=== PATIENT | male | born 1980 | race Caucasian/White ===

== ENCOUNTER 2017-03-28 14:13 | Inpatient (IN) | payer OTHER ==
[2017-03-28 17:37] VITALS: BMI 23.6
--- NOTE | 2017-03-28 18:39 | HP ---
CIWA Score - CIWA Score Nausea/Vomitin-Mild Nausea/No Vomiting Muscle Tremors: 1-None Visible, but [place] Anxiety: 2 Agitation: 1-Slight > Activity Paroxysmal Sweats: No Perspiration Orientation: 1-Uncertain about Date Tacttile Disturbances: 0-None Auditory Disturbances: 2-Mild Harshness/Frighten Visual Disturbances: 2-Mild Sensitivity Headache: 3-Moderate CIWA-Ar Total Score: 13 Admission ROS S - HPI Chief Complaint: WITHDRAWAL SYMPTOMS Allergies/Adverse Reactions: Allergies Allergy/AdvReac Type Severity Reaction Status Date / Time No Known Allergies Allergy Verified 03/28/17 17:47 History of Present Illness: 36 Y.O. MAN WITH A HISTORY OF BENZODIAZEPINES AND OPIOID DEPENDENCE IS HERE SEEKING DETOX. HE STATES HE IS ENROLLED AT [facility] MMTP AND LDM ON 03/28/17 AT 140MG OF METHADONE. DOES NOT HAVE A SIGNIFICANT PERIOD CLEAN. Exam Limitations: No Limitations - Ebola screening Have you traveled outside of the country in the last 21 days: No Have you had contact with anyone from an Ebola affected area: No Have you been sick,other than usual withdrawal symptoms: No Do you have a fever: No - Review of Systems Constitutional: No Symptoms Reported EENT: reports: No Symptoms Reported Respiratory: reports: Shortness of Breath, Wheezing Cardiac: reports: No Symptoms Reported GI: reports: No Symptoms Reported : reports: No Symptoms Reported Musculoskeletal: reports: No Symptoms Reported Integumentary: reports: No Symptoms Reported Neuro: reports: Headache, Seizure (DRUG INDUCED) Endocrine: reports: No Symptoms Reported Hematology: reports: No Symptoms Reported Psychiatric: reports: Judgement Intact, Mood/Affect Appropiate Other Systems: Reviewed and Negative Patient History - Patient Medical History Hx Anemia: No Hx Asthma: Yes Hx Chronic Obstructive Pulmonary Disease (COPD): No Hx Cancer: No Hx Cardiac Disorders: No Hx Congestive Heart Failure: No Hx Hypertension: No Hx Hypercholesterolemia: No Hx Pacemaker: No HX Cerebrovascular Accident: No Hx Seizures: Yes (benzo related seizures last 5 weeks.) Hx Dementia: No Hx Diabetes: No Hx Gastrointestinal Disorders: Yes (hx of GERD) Hx Liver Disease: No Hx Genitourinary Disorders: No Hx Sexually Transmitted Disorders: No Hx Renal Disease (ESRD): No Hx Thyroid Disease: No Hx Human Immunodeficiency Virus (HIV): No Hx Hepatitis C: Yes (UNTREATED) Hx Depression: No Hx Suicide Attempt: No Hx Bipolar Disorder: No Hx Schizophrenia: No Other Medical History: ANXIETY - Patient Surgical History Past Surgical History: No - PPD History Previous Implant?: Yes Documented Results: Negative w/o proof Implanted On Prior R Admission?: No PPD to be Administered?: Yes - Reproductive History Patient is a Female of Child Bearing Age (11 -55 yrs old): No - Smoking Cessation Smoking history: Current every day smoker Have you smoked in the past 12 months: Yes Aproximately how many cigarettes per day: 10 Hx Chewing Tobacco Use: No Initiated information on smoking cessation: Yes 'Breaking Loose' booklet given: 03/28/17 - Substance & Tx. History Hx Alcohol Use: No Hx Substance Use: Yes Substance Use Type: Alcohol, Cocaine, Heroin Hx Substance Use Treatment: Yes (REHAB: 4 YEARS AGO ) - Substances Abused Cocaine Route: Injection Frequency: 1-2 times per week Amount used: $50-100 Age of first use: 15 Date of Last Use: 03/27/17 Heroin Route: Injection Frequency: 1-2 times per week Amount used: 1 BAG Age of first use: 17 Date of Last Use: 03/26/17 CLONAZOLAM Route: Oral Frequency: Daily Amount used: 2-4 PILLS Age of first use: 36 Date of Last Use: 03/28/17 Alcohol Route: Oral Frequency: Daily Amount used: 2-3 24OZ OF BEER Age of first use: 13 Date of Last Use: 03/27/17 Family Disease History - Family Disease History Family History: Denies Family Disease History: Diabetes: Father (HEROIN DEPENDENCE ), Mother (HEROIN DEPENDENCE), Other: Father, Mother Admission Physical Exam S - Vital Signs Vital Signs: Vital Signs - 24 hr 03/28/17 17:28 Temperature 98.8 F Pulse Rate 76 Respiratory 18 Rate Blood Pressure 118/70 - Physical General Appearance: Yes: Disheveled, Irritable, Sweating, Anxious HEENTM: Yes: Hearing grossly Normal, Normal ENT Inspection, Normocephalic Respiratory: Yes: Chest Non-Tender, Lungs Clear, Normal Breath Sounds, No Respiratory Distress, No Accessory Muscle Use Neck: Yes: No masses,lesions,Nodules, Trachea in good position Breast: Yes: Breast Exam Deferred Cardiology: Yes: Regular Rhythm, Regular Rate Abdominal: Yes: Normal Bowel Sounds, Non Tender Genitourinary: Yes: Other (NO COMPLAINTS REPORTED) Back: Yes: Normal Inspection Musculoskeletal: Yes: full range of Motion, Gait Steady Extremities: Yes: Tremors Neurological: Yes: Alert, Normal Mood/Affect, Normal Response Integumentary: Yes: Normal Color, Dry, Track Win Lymphatic: Yes: Within Normal Limits - Diagnostic (1) Asthma Current Visit: Yes Status: Chronic (2) Nicotine dependence Current Visit: Yes Status: Chronic (3) History of hepatitis C virus infection Current Visit: Yes Status: Chronic (4) Opioid dependence on agonist therapy Current Visit: Yes Status: Chronic (5) Sedative, hypnotic or anxiolytic dependence with withdrawal, uncomplicated Current Visit: Yes Status: Chronic (6) Cocaine dependence, uncomplicated Current Visit: Yes Status: Chronic Cleared for Admission [facility] - Detox or Rehab [facility] Level of Care: Medically Managed Detox Regimen/Protocol: Methadone/Valium [facility] Breath Alcohol Content Breath Alcohol Content: 0 Urine Drug Screen - Results Drug Screen Negative: No Urine Drug Screen Results: LOURDES-Cocaine, OPI-Opiates, BZO-Benzodiazepines, MTD- Methadone
[2017-03-28] MEDS ORDERED: LOPERAMIDE HCL 2 MG CAPSULE PO PRN (19:00)
[2017-03-28] MEDS ORDERED: guaiFENesin/D-METHORPHAN HB 10 ML UNIT-DOSE CUPS PO PRN (19:00)
[2017-03-28] MEDS ORDERED: ACETAMINOPHEN 325 MG TABLET (FP) PO PRN (19:00)
[2017-03-28] MEDS ORDERED: MAGNESIUM CITRATE 300 ML BOTTLE PO PRN (19:00)
[2017-03-28] MEDS ORDERED: IBUPROFEN 400 MG TABLET (FP) PO PRN (19:00)
[2017-03-28] MEDS ORDERED: MAGNESIUM HYDROX 2400MG/30ML ORAL SUSPENSION 30 ML CUP PO PRN (19:00)
[2017-03-28] MEDS ORDERED: MENTHOL/PHENOL 1 EACH UD MM PRN (19:00)
[2017-03-28] MEDS ORDERED: NICOTINE POLACRILEX 2 MG GUM BC PRN (19:00)
[2017-03-28] MEDS ORDERED: P-EPHED 60MG/TRIPROLIDI 2.5MG TABLET PO PRN (19:00)
[2017-03-28] MEDS ORDERED: diazePAM 5 MG TABLET PO ONE (19:00)
[2017-03-28] MEDS ORDERED: ALBUTEROL SO4 2.5/IPRATROPIUM 0.5 INH SOL 3 ML VIAL.NEB. NEB PRN (19:02)
[2017-03-28] MEDS: THIAMINE HCL 100 MG TABLET (FP) PO SCH (21:38)
[2017-03-28 22:32] LABS: URINE APPEARANCE CLEAR; URINE BILIRUBIN NEGATIVE (NEGATIVE); URINE BLOOD NEGATIVE (NEGATIVE); URINE COLOR YELLOW; URINE GLUCOSE (UA) NEGATIVE (NEGATIVE); URINE KETONE TRACE (NEGATIVE); URINE LEUK ESTERASE TRACE (NEGATIVE); URINE NITRITE NEGATIVE (NEGATIVE); URINE PROTEIN NEGATIVE (NEGATIVE)
[2017-03-28 22:51] LABS: URINE BACTERIA RARE /hpf (NONE SEEN); URINE MUCUS RARE
[2017-03-28] MEDS: FLUTICASONE/SALMETEROL 100 MCG/50 MCG DISKUS IH SCH (22:57)
[2017-03-28] MEDS: diazePAM 5 MG TABLET PO SCH (23:00)
[2017-03-28] MEDS: MAG HYDROX/AL HYDROX/SIMETH 30 ML UNIT-DOSE CUP PO PRN (23:41)
[2017-03-28] MEDS ORDERED: PANTOPRAZOLE 40 MG TABLET (FP) PO ONE (23:45)
[2017-03-29] MEDS: diazePAM 5 MG TABLET PO PRN ×3 (01:27→17:28)
[2017-03-29] MEDS: diazePAM 5 MG TABLET PO SCH ×3 (06:17→22:27)
[2017-03-29] MEDS ORDERED: METHADONE HCL 10 MG TABLET PO ONE (10:13)
[2017-03-29] MEDS ORDERED: METHADONE 120 MG, METHADONE 20 MG PO ONE (10:30)
[2017-03-29 10:33] LABS: ALBUMIN 3.1 g/dl (3.4-5.0); ALK PHOS 52 U/L (45-117); ANION GAP 8 (8-16); BILIRUBIN,TOTAL 0.2 mg/dL (0.2-1.0); BLOOD UREA NITROGEN 14 mg/dL (7-18); CALCIUM 7.8 mg/dL (8.5-10.1); CHLORIDE 104 mmol/L (98-107); CO2 29 mmol/L (21-32); CREATININE 0.8 mg/dL (0.7-1.3); GLUCOSE,RANDOM 98 mg/dL (74-106); SGPT/ALT 27 U/L (12-78); SODIUM 141 mmol/L (136-145); TOT PROT 6.1 g/dl (6.4-8.2)
[2017-03-29 10:40] LABS: HEMATOCRIT 35.4 % (35.4-49); HEMOGLOBIN 11.8 GM/dL (11.7-16.9); MCH 29.9 pg (25.7-33.7); MCHC 33.4 g/dl (32.0-35.9); MEAN CELL VOLUME 89.7 fl (80-96); MEAN PLT VOLUME 8.1 fl (7.5-11.1); PLATELET COUNT 145 K/MM3 (134-434); RBC 3.94 M/mm3 (4.00-5.60); RDW 12.7 % (11.9-15.9)
[2017-03-29 10:43] LABS: POTASSIUM 3.9 mmol/L (3.5-5.1); SGOT/AST 31 U/L (15-37)
[2017-03-29] MEDS: PRENATAL VITAMINS W/ FOLIC ACID TABLET (FP) PO SCH (10:44)
[2017-03-29] MEDS: PANTOPRAZOLE 40 MG TABLET (FP) PO SCH (10:44)
[2017-03-29] MEDS ORDERED: METHADONE HCL 40 MG DISPERSABLE TABLET ONE (10:45)
[2017-03-29] MEDS ORDERED: METHADONE HCL 10 MG TABLET ONE (10:45)
[2017-03-29] MEDS: FLUTICASONE/SALMETEROL 100 MCG/50 MCG DISKUS IH SCH ×2 (10:47→22:26)
[2017-03-29] MEDS: NICOTINE 14 MG/24 HOURS TOPICAL PATCH TD SCH (10:50)
--- NOTE | 2017-03-29 14:23 | PN ---
[facility] CIWA - CIWA Score Nausea/Vomitin-Mild Nausea/No Vomiting Muscle Tremors: 3 Anxiety: 4-Mod. Anxious/Guarded Agitation: 4-Moderately Restless Paroxysmal Sweats: 3 Orientation: 0-Oriented Tacttile Disturbances: 1-Very Mild Itch/Numbness Auditory Disturbances: 0-None Visual Disturbances: 0-None Headache: 0-None Present CIWA-Ar Total Score: 16 BHS Progress Note (SOAP) Subjective: Anxious, restless, irritable Objective: 03/29/17 14:50 Last Vital Signs Temp Pulse Resp BP Pulse Ox 98.7 F 58 L 18 99/52 03/29/17 13:20 03/29/17 13:20 03/29/17 13:20 03/29/17 13:20 Laboratory Tests 03/28/17 03/29/17 03/29/17 20:21 08:00 08:00 WBC 4.0 RBC 3.94 L Hgb 11.8 Hct 35.4 MCV 89.7 MCH 29.9 MCHC 33.4 RDW 12.7 Plt Count 145 MPV 8.1 Sodium Potassium Chloride Carbon Dioxide Anion Gap BUN Creatinine Creat Clearance w eGFR Random Glucose Calcium Total Bilirubin AST ALT Alkaline Phosphatase Total Protein Albumin Urine Color Yellow Urine Appearance Clear Urine pH 6.0 Ur Specific [place] 1.023 Urine Protein Negative Urine Glucose (UA) Negative Urine Ketones Trace H Urine Blood Negative Urine Nitrite Negative Urine Bilirubin Negative Urine Urobilinogen 2.0 Ur Leukocyte Esterase Trace Urine WBC (Auto) 3 Urine RBC (Auto) <1 Urine Bacteria Rare Urine Mucus Rare RPR Titer HIV 1&2 Antibody Screen Negative HIV P24 Antigen Negative 03/29/17 03/29/17 08:00 08:00 WBC RBC Hgb Hct MCV MCH MCHC RDW Plt Count MPV Sodium 141 Potassium 3.9 Chloride 104 Carbon Dioxide 29 Anion Gap 8 BUN 14 Creatinine 0.8 Creat Clearance w eGFR > 60 Random Glucose 98 Calcium 7.8 L Total Bilirubin 0.2 AST 31 ALT 27 Alkaline Phosphatase 52 Total Protein 6.1 L Albumin 3.1 L Urine Color Urine Appearance Urine pH Ur Specific [place] Urine Protein Urine Glucose (UA) Urine Ketones Urine Blood Urine Nitrite Urine Bilirubin Urine Urobilinogen Ur Leukocyte Esterase Urine WBC (Auto) Urine RBC (Auto) Urine Bacteria Urine Mucus RPR Titer Nonreactive HIV 1&2 Antibody Screen HIV P24 Antigen Labs noted Assessment: 03/29/17 14:50 Withdrawal symptoms Plan: Continue detox
--- NOTE | 2017-03-29 14:25 | CONSULT ---
[facility] Psychiatric Consult - Data Date of interview: 03/29/17 Admission source: [facility] Identifying data: Readmission to [facility] for this 36 y/o male seeking detox treatment on 3 for opioid,benzodiazepines,cocaine and alcohol dependence.Patient is single,father of one,homeless,unemployed and supported on food stamps. Substance Abuse History: Confirmed by patient in this interview.For details, refer to this portion of current [facility] report : Smoking history: Current every day smoker. Have you smoked in the past 12 months: Yes. Aproximately how many cigarettes per day: 10. Hx Chewing Tobacco Use: No. Initiated information on smoking cessation: Yes. 'Breaking Loose' booklet given: 03/28/17. - Substance & Tx. History. Hx Alcohol Use: No. Hx Substance Use: Yes. Substance Use Type : Alcohol, Cocaine, Heroin. Hx Substance Use Treatment: Yes (REHAB: 4 YEARS AGO ). - Substances Abused. Cocaine. Route: Injection. Frequency: 1-2 times per week. Amount used: $50-100. Age of first use: 15. Date of Last Use : 03/27/17. Heroin. Route: Injection. Frequency: 1-2 times per week. Amount used: 1 BAG. Age of first use: 17. Date of Last Use: 03/26/17. CLONAZOLAM. Route: Oral. Frequency: Daily. Amount used: 2-4 PILLS. Age of first use: 36. Date of Last Use: 03/28/17. Alcohol. Route: Oral. Frequency: Daily. Amount used: 2-3 24OZ OF BEER. Age of first use: 13. Date of Last Use: 03/27/17 Medical History: Bronchial asthma,hepatitis C,GERD and a history of withdrawal- related seizures. Psychiatric History: Patient denies history of psychiatric hospitalizations.Mr Hicks is currently on methadone maintenance (140 mg/day) at the [facility] program in [facility]. Physical/Sexual Abuse/Trauma History: Patient denies. Additional Comment: Urine Drug Screen Results: LOURDES-Cocaine, OPI-Opiates, BZO- Benzodiazepines, MTD-Methadone.Noted. Mental Status Exam - Mental Status Exam Alert and Oriented to: Time, Place, Person Cognitive Function: Good Patient Appearance: Well Groomed Mood: Withdrawn, Anxious Affect: Appropriate, Normal Range Patient Behavior: Appropriate, Cooperative Speech Pattern: Clear, Appropriate Voice Loudness: Normal Thought Process: Intact, Goal Oriented Thought Disorder: Not Present Hallucinations: Denies Suicidal Ideation: Denies Homicidal Ideation: Denies Insight/Judgement: Poor Sleep: Well Appetite: Good Muscle strength/Tone: Normal Gait/Station: Normal Psychiatric Findings - Problem List ([place] 1, 2,3) (1) Opioid dependence on agonist therapy Current Visit: Yes Status: Acute (2) Cocaine dependence, uncomplicated Current Visit: Yes Status: Acute (3) Sedative, hypnotic or anxiolytic dependence with withdrawal, uncomplicated Current Visit: Yes Status: Acute (4) Nicotine dependence Current Visit: Yes Status: Acute - Initial Treatment Plan Initial Treatment Plan: Psychoeducation.Detoxification in progress.Observation.
--- NOTE | 2017-03-29 16:00 | EKG ---
Test Reason : Blood Pressure : / mmHG Vent. Rate : 069 BPM Atrial Rate : 069 BPM P-R Int : 164 ms QRS Dur : 098 ms QT Int : 436 ms P-R-T Axes : 072 070 060 degrees QTc Int : 467 ms NORMAL SINUS RHYTHM NORMAL ECG NO PREVIOUS ECGS AVAILABLE Confirmed by CALISTA BRONSON, BARBARA ([id number]) on 03/29/2017 3:59:56 PM Referred By: Confirmed By:BARBARA GRIGSBY MD
[2017-03-29] MEDS: ALBUTEROL SO4 18 GM HFA INHALER IH PRN ×2 (17:28→22:28)
[2017-03-29] MEDS: THIAMINE HCL 100 MG TABLET (FP) PO SCH (22:27)
[2017-03-30] MEDS: diazePAM 5 MG TABLET PO PRN ×5 (00:39→21:06)
[2017-03-30] MEDS ORDERED: METHADONE HCL 10 MG TABLET ONE (04:06)
[2017-03-30] MEDS ORDERED: METHADONE HCL 40 MG DISPERSABLE TABLET ONE (04:06)
[2017-03-30] MEDS: METHADONE 120 MG, METHADONE 20 MG PO SCH (05:49)
[2017-03-30] MEDS ORDERED: METHADONE HCL 10 MG TABLET PO SCH (06:00)
[2017-03-30] MEDS: diazePAM 5 MG TABLET PO SCH ×2 (10:20→23:16)
[2017-03-30] MEDS: PANTOPRAZOLE 40 MG TABLET (FP) PO SCH (10:20)
[2017-03-30] MEDS: FLUTICASONE/SALMETEROL 100 MCG/50 MCG DISKUS IH SCH ×2 (10:20→22:23)
[2017-03-30] MEDS: PRENATAL VITAMINS W/ FOLIC ACID TABLET (FP) PO SCH (10:20)
[2017-03-30] MEDS: NICOTINE 14 MG/24 HOURS TOPICAL PATCH TD SCH (10:21)
[2017-03-30] MEDS: ALBUTEROL SO4 18 GM HFA INHALER IH PRN ×2 (10:23→21:08)
--- NOTE | 2017-03-30 12:20 | PN ---
S CIWA - CIWA Score Nausea/Vomitin Muscle Tremors: 3 Anxiety: 3 Agitation: 3 Paroxysmal Sweats: 2 Orientation: 0-Oriented Tacttile Disturbances: 0-None Auditory Disturbances: 0-None Visual Disturbances: 0-None Headache: 0-None Present CIWA-Ar Total Score: 14 BHS Progress Note (SOAP) Subjective: shakes sweats 'loopy" Objective: 03/30/17 12:19 sleepy, arousable to verbal stimuli Vital Signs Temperature 97.5 F L 03/30/17 09:15 Pulse Rate 52 L 03/30/17 09:15 Respiratory Rate 18 03/30/17 09:15 Blood Pressure 93/52 03/30/17 09:15 O2 Sat by Pulse Oximetry (%) Laboratory Last Values WBC 4.0 K/mm3 (4.0-10.0) 03/29/17 08:00 RBC 3.94 M/mm3 (4.00-5.60) L 03/29/17 08:00 Hgb 11.8 GM/dL (11.7-16.9) 03/29/17 08:00 Hct 35.4 % (35.4-49) 03/29/17 08:00 MCV 89.7 fl (80-96) 03/29/17 08:00 MCH 29.9 pg (25.7-33.7) 03/29/17 08:00 MCHC 33.4 g/dl (32.0-35.9) 03/29/17 08:00 RDW 12.7 % (11.9-15.9) 03/29/17 08:00 Plt Count 145 K/MM3 (134-434) 03/29/17 08:00 MPV 8.1 fl (7.5-11.1) 03/29/17 08:00 Sodium 141 mmol/L (136-145) 03/29/17 08:00 Potassium 3.9 mmol/L (3.5-5.1) 03/29/17 08:00 Chloride 104 mmol/L (98-107) 03/29/17 08:00 Carbon Dioxide 29 mmol/L (21-32) 03/29/17 08:00 Anion Gap 8 (8-16) 03/29/17 08:00 BUN 14 mg/dL (7-18) 03/29/17 08:00 Creatinine 0.8 mg/dL (0.7-1.3) 03/29/17 08:00 Creat Clearance w eGFR > 60 (>60) 03/29/17 08:00 Random Glucose 98 mg/dL (74-106) 03/29/17 08:00 Calcium 7.8 mg/dL (8.5-10.1) L 03/29/17 08:00 Total Bilirubin 0.2 mg/dL (0.2-1.0) 03/29/17 08:00 AST 31 U/L (15-37) 03/29/17 08:00 ALT 27 U/L (12-78) 03/29/17 08:00 Alkaline Phosphatase 52 U/L (45-117) 03/29/17 08:00 Total Protein 6.1 g/dl (6.4-8.2) L 03/29/17 08:00 Albumin 3.1 g/dl (3.4-5.0) L 03/29/17 08:00 Urine Color Yellow 03/28/17 20:21 Urine Appearance Clear 03/28/17 20:21 Urine pH 6.0 (5.0-8.0) 03/28/17 20:21 Ur Specific [place] 1.023 (1.001-1.035) 03/28/17 20:21 Urine Protein Negative (NEGATIVE) 03/28/17 20:21 Urine Glucose (UA) Negative (NEGATIVE) 03/28/17 20:21 Urine Ketones Trace (NEGATIVE) H 03/28/17 20:21 Urine Blood Negative (NEGATIVE) 03/28/17 20:21 Urine Nitrite Negative (NEGATIVE) 03/28/17 20:21 Urine Bilirubin Negative (NEGATIVE) 03/28/17 20:21 Urine Urobilinogen 2.0 mg/dL (0.2-1.0) 03/28/17 20:21 Ur Leukocyte Esterase Trace (NEGATIVE) 03/28/17 20:21 Urine WBC (Auto) 3 /hpf (3-5) 03/28/17 20:21 Urine RBC (Auto) <1 /hpf (0-3) 03/28/17 20:21 Urine Bacteria Rare /hpf (NONE SEEN) 03/28/17 20:21 Urine Mucus Rare 03/28/17 20:21 RPR Titer Nonreactive (NONREACTIVE) 03/29/17 08:00 HIV 1&2 Antibody Screen Negative 03/29/17 08:00 HIV P24 Antigen Negative 03/29/17 08:00 labs noted Assessment: 03/30/17 12:20 withdrawal sx Plan: continue detox
[2017-03-30] MEDS: THIAMINE HCL 100 MG TABLET (FP) PO SCH (22:24)
[2017-03-30] MEDS: hydrOXYzine PAMOATE 50 MG CAPSULE (FP) PO PRN (22:25)
[2017-03-31] MEDS: diazePAM 5 MG TABLET PO PRN ×4 (02:18→17:45)
[2017-03-31] MEDS ORDERED: METHADONE HCL 40 MG DISPERSABLE TABLET ONE (04:37)
[2017-03-31] MEDS ORDERED: METHADONE HCL 10 MG TABLET ONE (04:37)
[2017-03-31] MEDS: METHADONE 120 MG, METHADONE 20 MG PO SCH (05:25)
[2017-03-31] MEDS: ALBUTEROL SO4 18 GM HFA INHALER IH PRN (10:20)
[2017-03-31] MEDS: FLUTICASONE/SALMETEROL 100 MCG/50 MCG DISKUS IH SCH ×2 (10:20→22:34)
[2017-03-31] MEDS: NICOTINE 14 MG/24 HOURS TOPICAL PATCH TD SCH (10:21)
[2017-03-31] MEDS: diazePAM 5 MG TABLET PO SCH ×2 (10:21→22:34)
[2017-03-31] MEDS: PRENATAL VITAMINS W/ FOLIC ACID TABLET (FP) PO SCH (10:21)
[2017-03-31] MEDS: PANTOPRAZOLE 40 MG TABLET (FP) PO SCH (10:21)
--- NOTE | 2017-03-31 12:05 | PN ---
S Progress Note (SOAP) Subjective: ANXIETY, SWEATS,IRRITABILITY,DIARRHEA. C/O RASH ON RIGHT SIDE OF NECK. Objective: 03/31/17 12:04 Vital Signs Temperature 98.1 F 03/31/17 09:39 Pulse Rate 67 03/31/17 09:39 Respiratory Rate 18 03/31/17 09:39 Blood Pressure 107/62 03/31/17 09:39 O2 Sat by Pulse Oximetry (%) Laboratory Last Values WBC 4.0 K/mm3 (4.0-10.0) 03/29/17 08:00 RBC 3.94 M/mm3 (4.00-5.60) L 03/29/17 08:00 Hgb 11.8 GM/dL (11.7-16.9) 03/29/17 08:00 Hct 35.4 % (35.4-49) 03/29/17 08:00 MCV 89.7 fl (80-96) 03/29/17 08:00 MCH 29.9 pg (25.7-33.7) 03/29/17 08:00 MCHC 33.4 g/dl (32.0-35.9) 03/29/17 08:00 RDW 12.7 % (11.9-15.9) 03/29/17 08:00 Plt Count 145 K/MM3 (134-434) 03/29/17 08:00 MPV 8.1 fl (7.5-11.1) 03/29/17 08:00 Sodium 141 mmol/L (136-145) 03/29/17 08:00 Potassium 3.9 mmol/L (3.5-5.1) 03/29/17 08:00 Chloride 104 mmol/L (98-107) 03/29/17 08:00 Carbon Dioxide 29 mmol/L (21-32) 03/29/17 08:00 Anion Gap 8 (8-16) 03/29/17 08:00 BUN 14 mg/dL (7-18) 03/29/17 08:00 Creatinine 0.8 mg/dL (0.7-1.3) 03/29/17 08:00 Creat Clearance w eGFR > 60 (>60) 03/29/17 08:00 Random Glucose 98 mg/dL (74-106) 03/29/17 08:00 Calcium 7.8 mg/dL (8.5-10.1) L 03/29/17 08:00 Total Bilirubin 0.2 mg/dL (0.2-1.0) 03/29/17 08:00 AST 31 U/L (15-37) 03/29/17 08:00 ALT 27 U/L (12-78) 03/29/17 08:00 Alkaline Phosphatase 52 U/L (45-117) 03/29/17 08:00 Total Protein 6.1 g/dl (6.4-8.2) L 03/29/17 08:00 Albumin 3.1 g/dl (3.4-5.0) L 03/29/17 08:00 Urine Color Yellow 03/28/17 20:21 Urine Appearance Clear 03/28/17 20:21 Urine pH 6.0 (5.0-8.0) 03/28/17 20:21 Ur Specific [place] 1.023 (1.001-1.035) 03/28/17 20:21 Urine Protein Negative (NEGATIVE) 03/28/17 20:21 Urine Glucose (UA) Negative (NEGATIVE) 03/28/17 20:21 Urine Ketones Trace (NEGATIVE) H 03/28/17 20:21 Urine Blood Negative (NEGATIVE) 03/28/17 20:21 Urine Nitrite Negative (NEGATIVE) 03/28/17 20:21 Urine Bilirubin Negative (NEGATIVE) 03/28/17 20:21 Urine Urobilinogen 2.0 mg/dL (0.2-1.0) 03/28/17 20:21 Ur Leukocyte Esterase Trace (NEGATIVE) 03/28/17 20:21 Urine WBC (Auto) 3 /hpf (3-5) 03/28/17 20:21 Urine RBC (Auto) <1 /hpf (0-3) 03/28/17 20:21 Urine Bacteria Rare /hpf (NONE SEEN) 03/28/17 20:21 Urine Mucus Rare 03/28/17 20:21 RPR Titer Nonreactive (NONREACTIVE) 03/29/17 08:00 HIV 1&2 Antibody Screen Negative 03/29/17 08:00 HIV P24 Antigen Negative 03/29/17 08:00 RIGHT NECK-SCATTERED PUSTULA RED RASH Assessment: 03/31/17 12:04 WITHDRAWAL SX Plan: CONTINUE DETOX HYDROCORTISONE CREAM 1% TP APPLY TO AFFECTED AREAS BID
[2017-03-31] MEDS: HYDROCORTISONE 1% TOPICAL CREAM 30 GM TUBE TP SCH ×2 (12:12→22:41)
[2017-03-31] MEDS: THIAMINE HCL 100 MG TABLET (FP) PO SCH (22:34)
[2017-03-31] MEDS: MAG HYDROX/AL HYDROX/SIMETH 30 ML UNIT-DOSE CUP PO PRN (22:35)
[2017-03-31] MEDS: hydrOXYzine PAMOATE 50 MG CAPSULE (FP) PO PRN (22:35)
[2017-04-01] MEDS ORDERED: METHADONE HCL 10 MG TABLET ONE (03:54)
[2017-04-01] MEDS ORDERED: METHADONE HCL 40 MG DISPERSABLE TABLET ONE (03:55)
[2017-04-01] MEDS: hydrOXYzine PAMOATE 50 MG CAPSULE (FP) PO PRN (04:06)
[2017-04-01] MEDS: METHADONE 120 MG, METHADONE 20 MG PO SCH (05:24)
[2017-04-01 09:49] VITALS: BP 120/70; PULSE 70; TEMP 97.9
[2017-04-01] MEDS ORDERED: diazePAM 5 MG TABLET PO SCH (10:00)
[2017-04-01] MEDS: PRENATAL VITAMINS W/ FOLIC ACID TABLET (FP) PO SCH (10:34)
[2017-04-01] MEDS: FLUTICASONE/SALMETEROL 100 MCG/50 MCG DISKUS IH SCH (10:34)
[2017-04-01] MEDS: PANTOPRAZOLE 40 MG TABLET (FP) PO SCH (10:34)
[2017-04-01] MEDS: NICOTINE 14 MG/24 HOURS TOPICAL PATCH TD SCH (10:34)
[2017-04-01] MEDS: HYDROCORTISONE 1% TOPICAL CREAM 30 GM TUBE TP SCH (10:35)
[2017-04-01] MEDS: ALBUTEROL SO4 18 GM HFA INHALER IH PRN (10:35)
--- NOTE | 2017-04-01 11:30 | DS ---
[facility] Detox Discharge Summary Admission Date: 03/28/17 Discharge Date: 04/01/17 - History Present History: Opioid Dependence Additional Comments: DETOX COMPLETED. REFERRED TO [address] [place] [address] REHAB TODAY. Pertinent Past History: SEE DX BELOW - Physical Exam Results Vital Signs: Vital Signs Temperature 97.9 F 04/01/17 09:49 Pulse Rate 70 04/01/17 09:49 Respiratory Rate 18 04/01/17 09:49 Blood Pressure 120/70 04/01/17 09:49 O2 Sat by Pulse Oximetry (%) Pertinent Admission Physical Exam Findings: WITHDRAWAL SX Laboratory Last Values WBC 4.0 K/mm3 (4.0-10.0) 03/29/17 08:00 RBC 3.94 M/mm3 (4.00-5.60) L 03/29/17 08:00 Hgb 11.8 GM/dL (11.7-16.9) 03/29/17 08:00 Hct 35.4 % (35.4-49) 03/29/17 08:00 MCV 89.7 fl (80-96) 03/29/17 08:00 MCH 29.9 pg (25.7-33.7) 03/29/17 08:00 MCHC 33.4 g/dl (32.0-35.9) 03/29/17 08:00 RDW 12.7 % (11.9-15.9) 03/29/17 08:00 Plt Count 145 K/MM3 (134-434) 03/29/17 08:00 MPV 8.1 fl (7.5-11.1) 03/29/17 08:00 Sodium 141 mmol/L (136-145) 03/29/17 08:00 Potassium 3.9 mmol/L (3.5-5.1) 03/29/17 08:00 Chloride 104 mmol/L (98-107) 03/29/17 08:00 Carbon Dioxide 29 mmol/L (21-32) 03/29/17 08:00 Anion Gap 8 (8-16) 03/29/17 08:00 BUN 14 mg/dL (7-18) 03/29/17 08:00 Creatinine 0.8 mg/dL (0.7-1.3) 03/29/17 08:00 Creat Clearance w eGFR > 60 (>60) 03/29/17 08:00 Random Glucose 98 mg/dL (74-106) 03/29/17 08:00 Calcium 7.8 mg/dL (8.5-10.1) L 03/29/17 08:00 Total Bilirubin 0.2 mg/dL (0.2-1.0) 03/29/17 08:00 AST 31 U/L (15-37) 03/29/17 08:00 ALT 27 U/L (12-78) 03/29/17 08:00 Alkaline Phosphatase 52 U/L (45-117) 03/29/17 08:00 Total Protein 6.1 g/dl (6.4-8.2) L 03/29/17 08:00 Albumin 3.1 g/dl (3.4-5.0) L 03/29/17 08:00 Urine Color Yellow 03/28/17 20:21 Urine Appearance Clear 03/28/17 20:21 Urine pH 6.0 (5.0-8.0) 03/28/17 20:21 Ur Specific [place] 1.023 (1.001-1.035) 03/28/17 20:21 Urine Protein Negative (NEGATIVE) 03/28/17 20:21 Urine Glucose (UA) Negative (NEGATIVE) 03/28/17 20:21 Urine Ketones Trace (NEGATIVE) H 03/28/17 20:21 Urine Blood Negative (NEGATIVE) 03/28/17 20:21 Urine Nitrite Negative (NEGATIVE) 03/28/17 20:21 Urine Bilirubin Negative (NEGATIVE) 03/28/17 20:21 Urine Urobilinogen 2.0 mg/dL (0.2-1.0) 03/28/17 20:21 Ur Leukocyte Esterase Trace (NEGATIVE) 03/28/17 20:21 Urine WBC (Auto) 3 /hpf (3-5) 03/28/17 20:21 Urine RBC (Auto) <1 /hpf (0-3) 03/28/17 20:21 Urine Bacteria Rare /hpf (NONE SEEN) 03/28/17 20:21 Urine Mucus Rare 03/28/17 20:21 RPR Titer Nonreactive (NONREACTIVE) 03/29/17 08:00 HIV 1&2 Antibody Screen Negative 03/29/17 08:00 HIV P24 Antigen Negative 03/29/17 08:00 - Treatment Hospital Course: Detox Protocol Followed, Detoxed Safely, Responded well, Discharged Condition Good - Medication Discharge Medications: Ambulatory Orders Albuterol Sulfate Inhaler - [Ventolin HFA Inhaler -] 2 inh PO Q4H PRN 03/28/17 Omeprazole 40 mg PO DAILY 03/28/17 Salmeterol/Fluticasone [Advair 100Mcg/50Mcg -] 1 inh PO BID 03/28/17 Methadone [Dolophine -] 140 mg PO DAILY 03/29/17 - Diagnosis (1) Cocaine dependence, uncomplicated Current Visit: Yes Status: Acute (2) Asthma Current Visit: Yes Status: Chronic Qualifiers: Asthma severity: mild Asthma complication type: uncomplicated (3) GERD (gastroesophageal reflux disease) Current Visit: Yes Status: Chronic Qualifiers: Esophagitis presence: esophagitis presence not specified Qualified Code(s) : K21.9 - Gastro-esophageal reflux disease without esophagitis (4) Nicotine dependence Current Visit: Yes Status: Acute Qualifiers: Nicotine product type: cigarettes Substance use status: in withdrawal Qualified Code(s): F17.213 - Nicotine dependence, cigarettes, with withdrawal (5) Sedative, hypnotic or anxiolytic dependence with withdrawal, uncomplicated Current Visit: Yes Status: Acute (6) History of hepatitis C virus infection Current Visit: Yes Status: Chronic (7) Methadone maintenance therapy patient Current Visit: Yes Status: Chronic - AMA Did Patient Leave Against Medical Advice: No
== END 2017-04-01 13:22 | disposition other institution (70) | DRG 773 ==
LOC: YASAS 14:13 → Y3N 19:17
PROVIDERS: ADMIT Internal Medicine; ATTEND Internal Medicine
PROC: HZ2ZZZZ Detoxification Services for Substance Abuse Treatment (ICD-10-PCS; principal; 2017-03-28)
DX: F13.230 Sedative, hypnotic or anxiolytic dependence with withdrawal, uncomplicated (principal); F11.20 Opioid dependence, uncomplicated; F14.20 Cocaine dependence, uncomplicated; F17.213 Nicotine dependence, cigarettes, with withdrawal; J45.909 Unspecified asthma, uncomplicated; B18.2 Chronic viral hepatitis C; K21.9 Gastro-esophageal reflux disease without esophagitis; R21 Rash and other nonspecific skin eruption; Z86.69 Personal history of other diseases of the nervous system and sense organs
CPT/HCPCS: 36415; 80053; 81003; 81015; 85027; 86593; 87389; 93005; 93010; 94640

== ENCOUNTER 2017-04-01 13:26 | Inpatient (IN) | payer OTHER ==
[2017-04-01] MEDS ORDERED: LOPERAMIDE HCL 2 MG CAPSULE PO PRN (15:45)
[2017-04-01] MEDS ORDERED: MAGNESIUM CITRATE 300 ML BOTTLE PO PRN (15:45)
[2017-04-01] MEDS ORDERED: IBUPROFEN 400 MG TABLET (FP) PO PRN (15:45)
[2017-04-01] MEDS ORDERED: MAG HYDROX/AL HYDROX/SIMETH 30 ML UNIT-DOSE CUP PO PRN (15:45)
[2017-04-01] MEDS ORDERED: NICOTINE POLACRILEX 4 MG GUM BUC PRN (15:45)
[2017-04-01] MEDS ORDERED: MAGNESIUM HYDROX 2400MG/30ML ORAL SUSPENSION 30 ML CUP PO PRN (15:45)
[2017-04-01] MEDS ORDERED: ACETAMINOPHEN 325 MG TABLET (FP) PO PRN (15:45)
[2017-04-01] MEDS ORDERED: MENTHOL/PHENOL 1 EACH UD MM PRN (15:45)
[2017-04-01] MEDS ORDERED: guaiFENesin/D-METHORPHAN HB 10 ML UNIT-DOSE CUPS PO PRN (15:45)
[2017-04-01] MEDS ORDERED: P-EPHED 60MG/TRIPROLIDI 2.5MG TABLET PO PRN (15:45)
[2017-04-01] MEDS: FLUTICASONE/SALMETEROL 100 MCG/50 MCG DISKUS IH SCH (21:23)
[2017-04-01] MEDS: THIAMINE HCL 100 MG TABLET (FP) PO SCH (21:23)
[2017-04-01] MEDS: hydrOXYzine PAMOATE 50 MG CAPSULE (FP) PO PRN (21:24)
[2017-04-02] MEDS ORDERED: METHADONE HCL 10 MG TABLET ONE (05:20)
[2017-04-02] MEDS ORDERED: METHADONE HCL 40 MG DISPERSABLE TABLET ONE (05:20)
[2017-04-02] MEDS ORDERED: METHADONE HCL 10 MG TABLET PO SCH (06:00)
[2017-04-02] MEDS: METHADONE 120 MG, METHADONE 20 MG PO SCH (06:13)
[2017-04-02] MEDS ORDERED: NICOTINE 21 MG/24 HOURS TOPICAL PATCH TD SCH (10:00)
[2017-04-02] MEDS: PRENATAL VITAMINS W/ FOLIC ACID TABLET (FP) PO SCH (10:27)
[2017-04-02] MEDS: PANTOPRAZOLE 40 MG TABLET (FP) PO SCH (10:27)
[2017-04-02] MEDS: FLUTICASONE/SALMETEROL 100 MCG/50 MCG DISKUS IH SCH ×2 (10:27→21:23)
--- NOTE | 2017-04-02 11:03 | HP ---
[facility] Rehab Assess/Revision - Admission History Admitted to Rehab from: [facility] Date of Admission to Rehab: 04/02/2016 - Vital signs Vital Signs: Vital Signs Period Temp Pulse Resp BP Sys/Lopes Pulse Ox Last 24 Hr 98.0 F 76 16-18 105/54 - Findings Detox History & Physical reviewed: Yes Concur with findings: Yes Inpatient Rehab Admission - Initial Determination Are CD services needed?: Yes Free of communicable disease: Yes Not in need of hospitalization: Yes - Rehab Admission Criteria Lacks judgement: Yes Patient is meeting Inpatient Rehab admission criteria:: Yes
--- NOTE | 2017-04-02 11:42 | HP ---
Psychiatrist Admission - Data Date of interview: 04/02/17 Admission source: 3N Identifying data: This is the first 5n inpatient rehabilitation admission for this 36 year old male, who is ,father of 14 months son, he is homeless, unemployed and supported on food stamps. Medical History: Bronchial asthma,hepatitis C,GERD and a history of withdrawal- related, seizures, smokes cgarettes 10 a day, and on MMTP 140 mg/daily. Psychiatric History: Patient reports no history of psychiatric treatment, but reports has been feeling very anxious and his primary physician was prescribing a klonopin and gabapentin 600 mg po tid. He reports that he also was buying through internet a clonazolam(combination klonopin and xanax) to contirol his anxiety. Physical/Sexual Abuse/Trauma History: Patient denies history of sexual, physical and verbal abuse. Additional Comment: Reports his parents were drug addicts, mother still on pain killers and benzo's. Reports he was but due to his drug use his has a restarin order from him. Vital Signs: Vital Signs - 24 hr 04/02/17 04/02/17 03:30 06:53 Temperature 98.0 F Pulse Rate 76 Respiratory 16 18 Rate Blood Pressure 105/54 Allergies/Adverse Reactions: Allergies Allergy/AdvReac Type Severity Reaction Status Date / Time No Known Allergies Allergy Verified 03/28/17 17:47 Date of last physical exam: 03/28/17 Concur with the findings of this exam: Yes - Substance Abuse/Tx History Hx Alcohol Use: Yes (beer 2 12 oz daily use ) Hx Substance Use: Yes Substance Use Type: Cocaine (started at age of 15, 1-2 timew a week $50-100), Heroin (1-2 bags 2 times a week), Tranquilizers (clonazolam daily 2-4 pills) Hx Substance Use Treatment: Yes ([facility] first step program) Mental Status Exam - Mental Status Exam Alert and Oriented to: Time, Place, Person Cognitive Function: Grossly Intact Patient Appearance: Well Groomed Mood: Anxious Affect: Appropriate, Mood Congruent Patient Behavior: Cooperative Speech Pattern: Clear, Appropriate Voice Loudness: Normal Thought Process: Intact, Goal Oriented Thought Disorder: Not Present Hallucinations: Denies Suicidal Ideation: Denies Homicidal Ideation: Denies Insight/Judgement: Fair Sleep: Fair Appetite: Fair Muscle strength/Tone: Normal Gait/Station: Normal Psychiatric Findings - Problem List ([place] 1, 2,3) (1) Cocaine dependence Current Visit: Yes Status: Acute (2) Sedative hypnotic or anxiolytic dependence Current Visit: Yes Status: Acute (3) Substance-induced anxiety disorder Current Visit: Yes Status: Acute (4) Nicotine dependence Current Visit: No Status: Acute Qualifiers: Nicotine product type: cigarettes Substance use status: in withdrawal Qualified Code(s): F17.213 - Nicotine dependence, cigarettes, with withdrawal (5) Opioid dependence on agonist therapy Current Visit: No Status: Acute - Initial Treatment Plan Initial Treatment Plan: Will restart Gabapenitn 200 mg po tid, psychoeducation provided, monitor progress.
[2017-04-02] MEDS: NICOTINE 7 MG/24 HOURS TOPICAL PATCH TD SCH (12:37)
[2017-04-02] MEDS: GABAPENTIN 100 MG CAPSULE (FP) PO SCH ×2 (14:18→21:23)
[2017-04-02] MEDS: THIAMINE HCL 100 MG TABLET (FP) PO SCH (21:23)
[2017-04-02] MEDS: hydrOXYzine PAMOATE 50 MG CAPSULE (FP) PO PRN (21:24)
[2017-04-02] MEDS: ALBUTEROL SO4 18 GM HFA INHALER IH PRN (21:25)
[2017-04-03] MEDS: hydrOXYzine PAMOATE 50 MG CAPSULE (FP) PO PRN ×2 (01:02→21:32)
[2017-04-03] MEDS ORDERED: METHADONE HCL 10 MG TABLET ONE (05:24)
[2017-04-03] MEDS ORDERED: METHADONE HCL 40 MG DISPERSABLE TABLET ONE (05:24)
[2017-04-03] MEDS: GABAPENTIN 100 MG CAPSULE (FP) PO SCH ×3 (06:21→21:30)
[2017-04-03] MEDS: METHADONE 120 MG, METHADONE 20 MG PO SCH (06:21)
[2017-04-03] MEDS ORDERED: METHADONE HCL 40 MG DISPERSABLE TABLET PO SCH (10:00)
[2017-04-03] MEDS: FLUTICASONE/SALMETEROL 100 MCG/50 MCG DISKUS IH SCH ×2 (10:14→21:32)
[2017-04-03] MEDS: PANTOPRAZOLE 40 MG TABLET (FP) PO SCH (10:15)
[2017-04-03] MEDS: NICOTINE 7 MG/24 HOURS TOPICAL PATCH TD SCH (10:15)
[2017-04-03] MEDS: PRENATAL VITAMINS W/ FOLIC ACID TABLET (FP) PO SCH (10:15)
[2017-04-03] MEDS: ALBUTEROL SO4 18 GM HFA INHALER IH PRN ×2 (10:16→21:33)
[2017-04-03] MEDS: THIAMINE HCL 100 MG TABLET (FP) PO SCH (21:31)
[2017-04-04] MEDS ORDERED: METHADONE HCL 10 MG TABLET ONE (03:06)
[2017-04-04] MEDS ORDERED: METHADONE HCL 40 MG DISPERSABLE TABLET ONE (03:07)
[2017-04-04] MEDS: METHADONE 120 MG, METHADONE 20 MG PO SCH (06:10)
[2017-04-04] MEDS: GABAPENTIN 100 MG CAPSULE (FP) PO SCH ×3 (06:11→21:18)
[2017-04-04] MEDS: PANTOPRAZOLE 40 MG TABLET (FP) PO SCH (09:56)
[2017-04-04] MEDS: PRENATAL VITAMINS W/ FOLIC ACID TABLET (FP) PO SCH (09:56)
[2017-04-04] MEDS: FLUTICASONE/SALMETEROL 100 MCG/50 MCG DISKUS IH SCH ×2 (09:57→21:18)
[2017-04-04] MEDS: NICOTINE 7 MG/24 HOURS TOPICAL PATCH TD SCH (09:57)
[2017-04-04] MEDS: ALBUTEROL SO4 18 GM HFA INHALER IH PRN ×2 (09:57→21:19)
[2017-04-04] MEDS: THIAMINE HCL 100 MG TABLET (FP) PO SCH (21:18)
[2017-04-04] MEDS: hydrOXYzine PAMOATE 50 MG CAPSULE (FP) PO PRN (21:18)
[2017-04-05] MEDS ORDERED: METHADONE HCL 10 MG TABLET ONE (03:26)
[2017-04-05] MEDS ORDERED: METHADONE HCL 40 MG DISPERSABLE TABLET ONE (03:26)
[2017-04-05] MEDS: GABAPENTIN 100 MG CAPSULE (FP) PO SCH ×3 (06:38→21:14)
[2017-04-05] MEDS: METHADONE 120 MG, METHADONE 20 MG PO SCH (06:38)
[2017-04-05] MEDS: PRENATAL VITAMINS W/ FOLIC ACID TABLET (FP) PO SCH (10:05)
[2017-04-05] MEDS: PANTOPRAZOLE 40 MG TABLET (FP) PO SCH (10:05)
[2017-04-05] MEDS: NICOTINE 7 MG/24 HOURS TOPICAL PATCH TD SCH (10:05)
[2017-04-05] MEDS: FLUTICASONE/SALMETEROL 100 MCG/50 MCG DISKUS IH SCH ×2 (10:06→21:14)
[2017-04-05] MEDS: THIAMINE HCL 100 MG TABLET (FP) PO SCH (21:14)
[2017-04-05] MEDS: hydrOXYzine PAMOATE 50 MG CAPSULE (FP) PO PRN (21:14)
[2017-04-05] MEDS: ALBUTEROL SO4 18 GM HFA INHALER IH PRN (21:15)
[2017-04-06] MEDS ORDERED: METHADONE HCL 40 MG DISPERSABLE TABLET ONE (02:40)
[2017-04-06] MEDS ORDERED: METHADONE HCL 10 MG TABLET ONE (02:40)
[2017-04-06] MEDS: GABAPENTIN 100 MG CAPSULE (FP) PO SCH ×3 (06:32→21:24)
[2017-04-06] MEDS: METHADONE 120 MG, METHADONE 20 MG PO SCH (06:33)
[2017-04-06] MEDS: PANTOPRAZOLE 40 MG TABLET (FP) PO SCH (10:22)
[2017-04-06] MEDS: FLUTICASONE/SALMETEROL 100 MCG/50 MCG DISKUS IH SCH ×2 (10:22→21:24)
[2017-04-06] MEDS: PRENATAL VITAMINS W/ FOLIC ACID TABLET (FP) PO SCH (10:22)
[2017-04-06] MEDS: NICOTINE 7 MG/24 HOURS TOPICAL PATCH TD SCH (10:23)
[2017-04-06] MEDS: ALBUTEROL SO4 18 GM HFA INHALER IH PRN (21:24)
[2017-04-06] MEDS: THIAMINE HCL 100 MG TABLET (FP) PO SCH (21:25)
[2017-04-06] MEDS: hydrOXYzine PAMOATE 50 MG CAPSULE (FP) PO PRN (21:25)
[2017-04-07] MEDS ORDERED: METHADONE HCL 10 MG TABLET ONE (03:33)
[2017-04-07] MEDS ORDERED: METHADONE HCL 40 MG DISPERSABLE TABLET ONE (03:34)
[2017-04-07] MEDS: GABAPENTIN 100 MG CAPSULE (FP) PO SCH ×3 (06:17→21:19)
[2017-04-07] MEDS: METHADONE 120 MG, METHADONE 20 MG PO SCH (06:17)
[2017-04-07] MEDS: PANTOPRAZOLE 40 MG TABLET (FP) PO SCH (10:01)
[2017-04-07] MEDS: PRENATAL VITAMINS W/ FOLIC ACID TABLET (FP) PO SCH (10:01)
[2017-04-07] MEDS: FLUTICASONE/SALMETEROL 100 MCG/50 MCG DISKUS IH SCH ×2 (10:01→21:19)
[2017-04-07] MEDS: NICOTINE 7 MG/24 HOURS TOPICAL PATCH TD SCH (10:02)
[2017-04-07] MEDS: THIAMINE HCL 100 MG TABLET (FP) PO SCH (21:20)
[2017-04-07] MEDS: hydrOXYzine PAMOATE 50 MG CAPSULE (FP) PO PRN (21:20)
[2017-04-07] MEDS: ALBUTEROL SO4 18 GM HFA INHALER IH PRN (21:21)
[2017-04-08] MEDS ORDERED: METHADONE HCL 10 MG TABLET ONE (04:52)
[2017-04-08] MEDS ORDERED: METHADONE HCL 40 MG DISPERSABLE TABLET ONE (04:53)
[2017-04-08] MEDS: METHADONE 120 MG, METHADONE 20 MG PO SCH (06:10)
[2017-04-08] MEDS: GABAPENTIN 100 MG CAPSULE (FP) PO SCH ×3 (06:10→21:19)
[2017-04-08] MEDS: NICOTINE 7 MG/24 HOURS TOPICAL PATCH TD SCH (10:06)
[2017-04-08] MEDS: PANTOPRAZOLE 40 MG TABLET (FP) PO SCH (10:06)
[2017-04-08] MEDS: PRENATAL VITAMINS W/ FOLIC ACID TABLET (FP) PO SCH (10:06)
[2017-04-08] MEDS: FLUTICASONE/SALMETEROL 100 MCG/50 MCG DISKUS IH SCH ×2 (10:06→21:19)
[2017-04-08] MEDS: ALBUTEROL SO4 18 GM HFA INHALER IH PRN ×2 (10:07→21:20)
[2017-04-08] MEDS: THIAMINE HCL 100 MG TABLET (FP) PO SCH (21:19)
[2017-04-08] MEDS: hydrOXYzine PAMOATE 50 MG CAPSULE (FP) PO PRN (21:19)
[2017-04-09] MEDS ORDERED: METHADONE HCL 40 MG DISPERSABLE TABLET ONE (06:08)
[2017-04-09] MEDS: METHADONE 120 MG, METHADONE 20 MG PO SCH (06:08)
[2017-04-09] MEDS ORDERED: METHADONE HCL 10 MG TABLET ONE (06:08)
[2017-04-09] MEDS: GABAPENTIN 100 MG CAPSULE (FP) PO SCH ×3 (06:09→21:35)
[2017-04-09] MEDS: NICOTINE 7 MG/24 HOURS TOPICAL PATCH TD SCH (10:04)
[2017-04-09] MEDS: FLUTICASONE/SALMETEROL 100 MCG/50 MCG DISKUS IH SCH ×2 (10:04→21:35)
[2017-04-09] MEDS: PANTOPRAZOLE 40 MG TABLET (FP) PO SCH (10:04)
[2017-04-09] MEDS: PRENATAL VITAMINS W/ FOLIC ACID TABLET (FP) PO SCH (10:04)
[2017-04-09] MEDS: ALBUTEROL SO4 18 GM HFA INHALER IH PRN ×2 (10:05→21:36)
[2017-04-09] MEDS: THIAMINE HCL 100 MG TABLET (FP) PO SCH (21:35)
[2017-04-09] MEDS: hydrOXYzine PAMOATE 50 MG CAPSULE (FP) PO PRN (21:35)
[2017-04-10] MEDS ORDERED: METHADONE HCL 40 MG DISPERSABLE TABLET ONE (04:50)
[2017-04-10] MEDS ORDERED: METHADONE HCL 10 MG TABLET ONE (04:50)
[2017-04-10] MEDS: GABAPENTIN 100 MG CAPSULE (FP) PO SCH ×3 (06:19→21:23)
[2017-04-10] MEDS: METHADONE 120 MG, METHADONE 20 MG PO SCH (06:20)
[2017-04-10] MEDS: FLUTICASONE/SALMETEROL 100 MCG/50 MCG DISKUS IH SCH ×2 (10:13→21:22)
[2017-04-10] MEDS: PRENATAL VITAMINS W/ FOLIC ACID TABLET (FP) PO SCH (10:13)
[2017-04-10] MEDS: ALBUTEROL SO4 18 GM HFA INHALER IH PRN ×2 (10:13→21:23)
[2017-04-10] MEDS: NICOTINE 7 MG/24 HOURS TOPICAL PATCH TD SCH (10:14)
[2017-04-10] MEDS: PANTOPRAZOLE 40 MG TABLET (FP) PO SCH (10:15)
[2017-04-10] MEDS: THIAMINE HCL 100 MG TABLET (FP) PO SCH (21:23)
[2017-04-10] MEDS: hydrOXYzine PAMOATE 50 MG CAPSULE (FP) PO PRN (21:23)
[2017-04-11] MEDS ORDERED: METHADONE HCL 10 MG TABLET ONE (03:22)
[2017-04-11] MEDS ORDERED: METHADONE HCL 40 MG DISPERSABLE TABLET ONE (03:23)
[2017-04-11] MEDS: METHADONE 120 MG, METHADONE 20 MG PO SCH (06:36)
[2017-04-11] MEDS: GABAPENTIN 100 MG CAPSULE (FP) PO SCH ×3 (06:37→21:13)
[2017-04-11] MEDS: NICOTINE 7 MG/24 HOURS TOPICAL PATCH TD SCH (10:21)
[2017-04-11] MEDS: FLUTICASONE/SALMETEROL 100 MCG/50 MCG DISKUS IH SCH ×2 (10:21→21:13)
[2017-04-11] MEDS: PRENATAL VITAMINS W/ FOLIC ACID TABLET (FP) PO SCH (10:23)
[2017-04-11] MEDS: PANTOPRAZOLE 40 MG TABLET (FP) PO SCH (10:23)
[2017-04-11] MEDS: ALBUTEROL SO4 18 GM HFA INHALER IH PRN (21:13)
[2017-04-11] MEDS: hydrOXYzine PAMOATE 50 MG CAPSULE (FP) PO PRN (21:13)
[2017-04-11] MEDS: THIAMINE HCL 100 MG TABLET (FP) PO SCH (21:13)
[2017-04-12] MEDS ORDERED: METHADONE HCL 10 MG TABLET ONE (05:58)
[2017-04-12] MEDS ORDERED: METHADONE HCL 40 MG DISPERSABLE TABLET ONE (05:59)
[2017-04-12] MEDS: METHADONE 120 MG, METHADONE 20 MG PO SCH (06:23)
[2017-04-12] MEDS: GABAPENTIN 100 MG CAPSULE (FP) PO SCH ×3 (06:24→21:11)
[2017-04-12] MEDS: ALBUTEROL SO4 18 GM HFA INHALER IH PRN ×2 (09:46→21:11)
[2017-04-12] MEDS: FLUTICASONE/SALMETEROL 100 MCG/50 MCG DISKUS IH SCH ×2 (09:46→21:11)
[2017-04-12] MEDS: PRENATAL VITAMINS W/ FOLIC ACID TABLET (FP) PO SCH (09:46)
[2017-04-12] MEDS: PANTOPRAZOLE 40 MG TABLET (FP) PO SCH (09:47)
[2017-04-12] MEDS: NICOTINE 7 MG/24 HOURS TOPICAL PATCH TD SCH (09:47)
[2017-04-12] MEDS: hydrOXYzine PAMOATE 50 MG CAPSULE (FP) PO PRN (21:11)
[2017-04-12] MEDS: THIAMINE HCL 100 MG TABLET (FP) PO SCH (21:12)
[2017-04-13] MEDS ORDERED: METHADONE HCL 10 MG TABLET ONE (05:07)
[2017-04-13] MEDS ORDERED: METHADONE HCL 40 MG DISPERSABLE TABLET ONE (05:07)
[2017-04-13] MEDS: METHADONE 120 MG, METHADONE 20 MG PO SCH (06:13)
[2017-04-13] MEDS: GABAPENTIN 100 MG CAPSULE (FP) PO SCH ×3 (06:13→21:14)
[2017-04-13] MEDS: ALBUTEROL SO4 18 GM HFA INHALER IH PRN ×2 (10:01→21:14)
[2017-04-13] MEDS: PANTOPRAZOLE 40 MG TABLET (FP) PO SCH (10:01)
[2017-04-13] MEDS: FLUTICASONE/SALMETEROL 100 MCG/50 MCG DISKUS IH SCH ×2 (10:01→21:15)
[2017-04-13] MEDS: PRENATAL VITAMINS W/ FOLIC ACID TABLET (FP) PO SCH (10:01)
[2017-04-13] MEDS: NICOTINE 7 MG/24 HOURS TOPICAL PATCH TD SCH (10:01)
[2017-04-13] MEDS: hydrOXYzine PAMOATE 50 MG CAPSULE (FP) PO PRN (21:14)
[2017-04-13] MEDS: THIAMINE HCL 100 MG TABLET (FP) PO SCH (21:15)
[2017-04-14] MEDS ORDERED: METHADONE HCL 10 MG TABLET ONE (03:15)
[2017-04-14] MEDS ORDERED: METHADONE HCL 40 MG DISPERSABLE TABLET ONE (03:15)
[2017-04-14] MEDS: METHADONE 120 MG, METHADONE 20 MG PO SCH (06:47)
[2017-04-14] MEDS: GABAPENTIN 100 MG CAPSULE (FP) PO SCH ×3 (06:47→21:15)
[2017-04-14] MEDS: PANTOPRAZOLE 40 MG TABLET (FP) PO SCH (09:54)
[2017-04-14] MEDS: NICOTINE 7 MG/24 HOURS TOPICAL PATCH TD SCH (09:54)
[2017-04-14] MEDS: FLUTICASONE/SALMETEROL 100 MCG/50 MCG DISKUS IH SCH ×2 (09:54→21:16)
[2017-04-14] MEDS: PRENATAL VITAMINS W/ FOLIC ACID TABLET (FP) PO SCH (09:54)
[2017-04-14] MEDS: hydrOXYzine PAMOATE 50 MG CAPSULE (FP) PO PRN (21:16)
[2017-04-14] MEDS: ALBUTEROL SO4 18 GM HFA INHALER IH PRN (21:16)
[2017-04-14] MEDS: THIAMINE HCL 100 MG TABLET (FP) PO SCH (21:16)
[2017-04-15] MEDS ORDERED: METHADONE HCL 40 MG DISPERSABLE TABLET ONE (03:22)
[2017-04-15] MEDS ORDERED: METHADONE HCL 10 MG TABLET ONE (03:22)
[2017-04-15] MEDS: GABAPENTIN 100 MG CAPSULE (FP) PO SCH ×3 (06:11→21:25)
[2017-04-15] MEDS: METHADONE 120 MG, METHADONE 20 MG PO SCH (06:11)
[2017-04-15] MEDS: PANTOPRAZOLE 40 MG TABLET (FP) PO SCH (09:49)
[2017-04-15] MEDS: NICOTINE 7 MG/24 HOURS TOPICAL PATCH TD SCH (09:49)
[2017-04-15] MEDS: PRENATAL VITAMINS W/ FOLIC ACID TABLET (FP) PO SCH (09:49)
[2017-04-15] MEDS: FLUTICASONE/SALMETEROL 100 MCG/50 MCG DISKUS IH SCH ×2 (09:49→21:26)
[2017-04-15] MEDS: THIAMINE HCL 100 MG TABLET (FP) PO SCH (21:25)
[2017-04-15] MEDS: ALBUTEROL SO4 18 GM HFA INHALER IH PRN (21:26)
[2017-04-15] MEDS: hydrOXYzine PAMOATE 50 MG CAPSULE (FP) PO PRN (21:26)
[2017-04-16] MEDS ORDERED: METHADONE HCL 10 MG TABLET ONE (03:26)
[2017-04-16] MEDS ORDERED: METHADONE HCL 40 MG DISPERSABLE TABLET ONE (03:27)
[2017-04-16] MEDS: METHADONE 120 MG, METHADONE 20 MG PO SCH (06:01)
[2017-04-16] MEDS: GABAPENTIN 100 MG CAPSULE (FP) PO SCH ×3 (06:01→21:20)
[2017-04-16] MEDS: NICOTINE 7 MG/24 HOURS TOPICAL PATCH TD SCH (10:04)
[2017-04-16] MEDS: FLUTICASONE/SALMETEROL 100 MCG/50 MCG DISKUS IH SCH ×2 (10:04→21:19)
[2017-04-16] MEDS: PRENATAL VITAMINS W/ FOLIC ACID TABLET (FP) PO SCH (10:04)
[2017-04-16] MEDS: PANTOPRAZOLE 40 MG TABLET (FP) PO SCH (10:04)
[2017-04-16] MEDS: THIAMINE HCL 100 MG TABLET (FP) PO SCH (21:20)
[2017-04-16] MEDS: hydrOXYzine PAMOATE 50 MG CAPSULE (FP) PO PRN (21:20)
[2017-04-16] MEDS: ALBUTEROL SO4 18 GM HFA INHALER IH PRN (21:20)
[2017-04-17] MEDS ORDERED: METHADONE HCL 40 MG DISPERSABLE TABLET ONE (05:16)
[2017-04-17] MEDS ORDERED: METHADONE HCL 10 MG TABLET ONE (05:16)
[2017-04-17] MEDS: METHADONE 120 MG, METHADONE 20 MG PO SCH (05:58)
[2017-04-17] MEDS: GABAPENTIN 100 MG CAPSULE (FP) PO SCH ×3 (05:58→21:20)
[2017-04-17] MEDS: FLUTICASONE/SALMETEROL 100 MCG/50 MCG DISKUS IH SCH ×2 (09:58→21:21)
[2017-04-17] MEDS: NICOTINE 7 MG/24 HOURS TOPICAL PATCH TD SCH (09:59)
[2017-04-17] MEDS: PRENATAL VITAMINS W/ FOLIC ACID TABLET (FP) PO SCH (09:59)
[2017-04-17] MEDS: PANTOPRAZOLE 40 MG TABLET (FP) PO SCH (09:59)
[2017-04-17] MEDS: hydrOXYzine PAMOATE 50 MG CAPSULE (FP) PO PRN (21:20)
[2017-04-17] MEDS: THIAMINE HCL 100 MG TABLET (FP) PO SCH (21:20)
[2017-04-17] MEDS: ALBUTEROL SO4 18 GM HFA INHALER IH PRN (21:22)
[2017-04-18] MEDS ORDERED: METHADONE HCL 10 MG TABLET ONE (03:13)
[2017-04-18] MEDS ORDERED: METHADONE HCL 40 MG DISPERSABLE TABLET ONE (03:14)
[2017-04-18] MEDS: GABAPENTIN 100 MG CAPSULE (FP) PO SCH ×3 (06:02→21:25)
[2017-04-18] MEDS: METHADONE 120 MG, METHADONE 20 MG PO SCH (06:03)
[2017-04-18] MEDS: NICOTINE 7 MG/24 HOURS TOPICAL PATCH TD SCH (10:02)
[2017-04-18] MEDS: PANTOPRAZOLE 40 MG TABLET (FP) PO SCH (10:02)
[2017-04-18] MEDS: PRENATAL VITAMINS W/ FOLIC ACID TABLET (FP) PO SCH (10:02)
[2017-04-18] MEDS: NICOTINE POLACRILEX 4 MG GUM BUC PRN (10:03)
[2017-04-18] MEDS: FLUTICASONE/SALMETEROL 100 MCG/50 MCG DISKUS IH SCH ×2 (11:00→21:27)
[2017-04-18] MEDS: hydrOXYzine PAMOATE 50 MG CAPSULE (FP) PO PRN (21:24)
[2017-04-18] MEDS: THIAMINE HCL 100 MG TABLET (FP) PO SCH (21:25)
[2017-04-19] MEDS ORDERED: METHADONE HCL 10 MG TABLET PO SCH (06:00)
[2017-04-19] MEDS ORDERED: METHADONE HCL 10 MG TABLET ONE (06:32)
[2017-04-19] MEDS ORDERED: METHADONE HCL 40 MG DISPERSABLE TABLET ONE (06:33)
[2017-04-19] MEDS: METHADONE 120 MG, METHADONE 20 MG PO SCH (06:33)
[2017-04-19] MEDS: GABAPENTIN 100 MG CAPSULE (FP) PO SCH ×3 (06:34→21:16)
[2017-04-19] MEDS: NICOTINE 7 MG/24 HOURS TOPICAL PATCH TD SCH (09:59)
[2017-04-19] MEDS: PANTOPRAZOLE 40 MG TABLET (FP) PO SCH (09:59)
[2017-04-19] MEDS: PRENATAL VITAMINS W/ FOLIC ACID TABLET (FP) PO SCH (09:59)
[2017-04-19] MEDS: FLUTICASONE/SALMETEROL 100 MCG/50 MCG DISKUS IH SCH ×2 (09:59→21:16)
[2017-04-19] MEDS: ALBUTEROL SO4 18 GM HFA INHALER IH PRN ×2 (09:59→21:17)
[2017-04-19] MEDS: NICOTINE POLACRILEX 4 MG GUM BUC PRN ×3 (10:00→21:17)
[2017-04-19] MEDS: THIAMINE HCL 100 MG TABLET (FP) PO SCH (21:16)
[2017-04-19] MEDS: hydrOXYzine PAMOATE 50 MG CAPSULE (FP) PO PRN (21:16)
[2017-04-20] MEDS ORDERED: METHADONE HCL 10 MG TABLET ONE (03:06)
[2017-04-20] MEDS ORDERED: METHADONE HCL 40 MG DISPERSABLE TABLET ONE (03:07)
[2017-04-20] MEDS: METHADONE 120 MG, METHADONE 20 MG PO SCH (06:32)
[2017-04-20] MEDS: GABAPENTIN 100 MG CAPSULE (FP) PO SCH ×3 (06:33→21:20)
[2017-04-20] MEDS: PANTOPRAZOLE 40 MG TABLET (FP) PO SCH (10:23)
[2017-04-20] MEDS: PRENATAL VITAMINS W/ FOLIC ACID TABLET (FP) PO SCH (10:23)
[2017-04-20] MEDS: FLUTICASONE/SALMETEROL 100 MCG/50 MCG DISKUS IH SCH ×2 (10:23→21:20)
[2017-04-20] MEDS: NICOTINE 7 MG/24 HOURS TOPICAL PATCH TD SCH (10:23)
[2017-04-20] MEDS: NICOTINE POLACRILEX 4 MG GUM BUC PRN ×3 (10:24→21:21)
[2017-04-20] MEDS: ALBUTEROL SO4 18 GM HFA INHALER IH PRN (21:20)
[2017-04-20] MEDS: THIAMINE HCL 100 MG TABLET (FP) PO SCH (21:20)
[2017-04-20] MEDS: hydrOXYzine PAMOATE 50 MG CAPSULE (FP) PO PRN (21:20)
[2017-04-21] MEDS ORDERED: METHADONE HCL 40 MG DISPERSABLE TABLET ONE (03:54)
[2017-04-21] MEDS ORDERED: METHADONE HCL 10 MG TABLET ONE (03:54)
[2017-04-21] MEDS: GABAPENTIN 100 MG CAPSULE (FP) PO SCH ×3 (06:08→21:19)
[2017-04-21] MEDS: METHADONE 120 MG, METHADONE 20 MG PO SCH (06:08)
[2017-04-21] MEDS: NICOTINE POLACRILEX 4 MG GUM BUC PRN ×2 (07:01→10:04)
[2017-04-21] MEDS: PANTOPRAZOLE 40 MG TABLET (FP) PO SCH (10:02)
[2017-04-21] MEDS: PRENATAL VITAMINS W/ FOLIC ACID TABLET (FP) PO SCH (10:02)
[2017-04-21] MEDS: FLUTICASONE/SALMETEROL 100 MCG/50 MCG DISKUS IH SCH ×2 (10:02→21:19)
[2017-04-21] MEDS: NICOTINE 7 MG/24 HOURS TOPICAL PATCH TD SCH (10:02)
[2017-04-21] MEDS: THIAMINE HCL 100 MG TABLET (FP) PO SCH (21:19)
[2017-04-21] MEDS: hydrOXYzine PAMOATE 50 MG CAPSULE (FP) PO PRN (21:20)
[2017-04-22] MEDS ORDERED: METHADONE HCL 10 MG TABLET ONE (06:00)
[2017-04-22] MEDS ORDERED: METHADONE HCL 40 MG DISPERSABLE TABLET ONE (06:00)
[2017-04-22] MEDS: GABAPENTIN 100 MG CAPSULE (FP) PO SCH ×3 (06:01→21:19)
[2017-04-22] MEDS: METHADONE 120 MG, METHADONE 20 MG PO SCH (06:01)
[2017-04-22] MEDS: NICOTINE POLACRILEX 4 MG GUM BUC PRN ×4 (06:02→21:20)
[2017-04-22] MEDS: PANTOPRAZOLE 40 MG TABLET (FP) PO SCH (10:04)
[2017-04-22] MEDS: FLUTICASONE/SALMETEROL 100 MCG/50 MCG DISKUS IH SCH ×2 (10:04→21:19)
[2017-04-22] MEDS: PRENATAL VITAMINS W/ FOLIC ACID TABLET (FP) PO SCH (10:04)
[2017-04-22] MEDS: NICOTINE 7 MG/24 HOURS TOPICAL PATCH TD SCH (10:05)
[2017-04-22] MEDS: hydrOXYzine PAMOATE 50 MG CAPSULE (FP) PO PRN (21:19)
[2017-04-22] MEDS: THIAMINE HCL 100 MG TABLET (FP) PO SCH (21:19)
[2017-04-23] MEDS ORDERED: METHADONE HCL 10 MG TABLET ONE (03:09)
[2017-04-23] MEDS ORDERED: METHADONE HCL 40 MG DISPERSABLE TABLET ONE (03:10)
[2017-04-23] MEDS: GABAPENTIN 100 MG CAPSULE (FP) PO SCH ×3 (06:11→21:19)
[2017-04-23] MEDS: METHADONE 120 MG, METHADONE 20 MG PO SCH (06:11)
[2017-04-23] MEDS: FLUTICASONE/SALMETEROL 100 MCG/50 MCG DISKUS IH SCH ×2 (10:16→21:19)
[2017-04-23] MEDS: PRENATAL VITAMINS W/ FOLIC ACID TABLET (FP) PO SCH (10:16)
[2017-04-23] MEDS: PANTOPRAZOLE 40 MG TABLET (FP) PO SCH (10:16)
[2017-04-23] MEDS: NICOTINE 7 MG/24 HOURS TOPICAL PATCH TD SCH (10:16)
[2017-04-23] MEDS: NICOTINE POLACRILEX 4 MG GUM BUC PRN ×4 (10:17→21:21)
[2017-04-23] MEDS: THIAMINE HCL 100 MG TABLET (FP) PO SCH (21:19)
[2017-04-23] MEDS: hydrOXYzine PAMOATE 50 MG CAPSULE (FP) PO PRN (21:19)
[2017-04-23] MEDS: ALBUTEROL SO4 18 GM HFA INHALER IH PRN (21:20)
[2017-04-24] MEDS ORDERED: METHADONE HCL 10 MG TABLET ONE (03:18)
[2017-04-24] MEDS ORDERED: METHADONE HCL 40 MG DISPERSABLE TABLET ONE (03:18)
[2017-04-24] MEDS: GABAPENTIN 100 MG CAPSULE (FP) PO SCH ×3 (06:01→21:16)
[2017-04-24] MEDS: METHADONE 120 MG, METHADONE 20 MG PO SCH (06:01)
[2017-04-24] MEDS: NICOTINE POLACRILEX 4 MG GUM BUC PRN ×4 (06:02→22:32)
[2017-04-24] MEDS: FLUTICASONE/SALMETEROL 100 MCG/50 MCG DISKUS IH SCH ×2 (10:15→21:16)
[2017-04-24] MEDS: NICOTINE 7 MG/24 HOURS TOPICAL PATCH TD SCH (10:16)
[2017-04-24] MEDS: PRENATAL VITAMINS W/ FOLIC ACID TABLET (FP) PO SCH (10:16)
[2017-04-24] MEDS: PANTOPRAZOLE 40 MG TABLET (FP) PO SCH (10:16)
[2017-04-24] MEDS: hydrOXYzine PAMOATE 50 MG CAPSULE (FP) PO PRN (21:16)
[2017-04-24] MEDS: THIAMINE HCL 100 MG TABLET (FP) PO SCH (21:16)
[2017-04-25] MEDS ORDERED: METHADONE HCL 10 MG TABLET ONE (06:03)
[2017-04-25] MEDS ORDERED: METHADONE HCL 40 MG DISPERSABLE TABLET ONE (06:03)
[2017-04-25] MEDS: METHADONE 120 MG, METHADONE 20 MG PO SCH (06:14)
[2017-04-25] MEDS: GABAPENTIN 100 MG CAPSULE (FP) PO SCH ×3 (06:14→21:19)
[2017-04-25] MEDS: NICOTINE POLACRILEX 4 MG GUM BUC PRN ×4 (06:16→21:20)
[2017-04-25] MEDS: PANTOPRAZOLE 40 MG TABLET (FP) PO SCH (10:09)
[2017-04-25] MEDS: NICOTINE 7 MG/24 HOURS TOPICAL PATCH TD SCH (10:09)
[2017-04-25] MEDS: PRENATAL VITAMINS W/ FOLIC ACID TABLET (FP) PO SCH (10:09)
[2017-04-25] MEDS: FLUTICASONE/SALMETEROL 100 MCG/50 MCG DISKUS IH SCH ×2 (11:00→21:19)
[2017-04-25] MEDS: THIAMINE HCL 100 MG TABLET (FP) PO SCH (21:18)
[2017-04-25] MEDS: ALBUTEROL SO4 18 GM HFA INHALER IH PRN (21:19)
[2017-04-25] MEDS: hydrOXYzine PAMOATE 50 MG CAPSULE (FP) PO PRN (21:19)
[2017-04-26] MEDS ORDERED: METHADONE HCL 10 MG TABLET ONE (02:14)
[2017-04-26] MEDS ORDERED: METHADONE HCL 40 MG DISPERSABLE TABLET ONE (02:15)
[2017-04-26] MEDS: GABAPENTIN 100 MG CAPSULE (FP) PO SCH ×3 (06:10→21:19)
[2017-04-26] MEDS: METHADONE 120 MG, METHADONE 20 MG PO SCH (06:11)
[2017-04-26] MEDS: NICOTINE POLACRILEX 4 MG GUM BUC PRN ×4 (07:18→21:20)
[2017-04-26] MEDS: PRENATAL VITAMINS W/ FOLIC ACID TABLET (FP) PO SCH (09:46)
[2017-04-26] MEDS: FLUTICASONE/SALMETEROL 100 MCG/50 MCG DISKUS IH SCH ×2 (09:46→21:19)
[2017-04-26] MEDS: PANTOPRAZOLE 40 MG TABLET (FP) PO SCH (09:46)
[2017-04-26] MEDS: NICOTINE 7 MG/24 HOURS TOPICAL PATCH TD SCH (09:46)
[2017-04-26] MEDS: THIAMINE HCL 100 MG TABLET (FP) PO SCH (21:19)
[2017-04-26] MEDS: hydrOXYzine PAMOATE 50 MG CAPSULE (FP) PO PRN (21:19)
[2017-04-27] MEDS ORDERED: METHADONE HCL 40 MG DISPERSABLE TABLET ONE (03:53)
[2017-04-27] MEDS ORDERED: METHADONE HCL 10 MG TABLET ONE (03:53)
[2017-04-27] MEDS: METHADONE 120 MG, METHADONE 20 MG PO SCH (06:50)
[2017-04-27] MEDS: GABAPENTIN 100 MG CAPSULE (FP) PO SCH ×3 (06:50→21:19)
[2017-04-27] MEDS: FLUTICASONE/SALMETEROL 100 MCG/50 MCG DISKUS IH SCH ×2 (09:47→21:19)
[2017-04-27] MEDS: NICOTINE 7 MG/24 HOURS TOPICAL PATCH TD SCH (09:48)
[2017-04-27] MEDS: PANTOPRAZOLE 40 MG TABLET (FP) PO SCH (09:48)
[2017-04-27] MEDS: PRENATAL VITAMINS W/ FOLIC ACID TABLET (FP) PO SCH (09:48)
[2017-04-27] MEDS: NICOTINE POLACRILEX 4 MG GUM BUC PRN ×3 (09:48→21:20)
[2017-04-27] MEDS: hydrOXYzine PAMOATE 50 MG CAPSULE (FP) PO PRN (21:19)
[2017-04-27] MEDS: THIAMINE HCL 100 MG TABLET (FP) PO SCH (21:19)
[2017-04-28] MEDS ORDERED: METHADONE HCL 10 MG TABLET ONE (03:23)
[2017-04-28] MEDS ORDERED: METHADONE HCL 40 MG DISPERSABLE TABLET ONE (03:23)
[2017-04-28] MEDS: METHADONE 120 MG, METHADONE 20 MG PO SCH (06:05)
[2017-04-28] MEDS: GABAPENTIN 100 MG CAPSULE (FP) PO SCH ×3 (06:05→21:15)
[2017-04-28] MEDS: NICOTINE POLACRILEX 4 MG GUM BUC PRN ×4 (06:06→21:16)
[2017-04-28] MEDS: PRENATAL VITAMINS W/ FOLIC ACID TABLET (FP) PO SCH (10:03)
[2017-04-28] MEDS: PANTOPRAZOLE 40 MG TABLET (FP) PO SCH (10:03)
[2017-04-28] MEDS: NICOTINE 7 MG/24 HOURS TOPICAL PATCH TD SCH (10:03)
[2017-04-28] MEDS: FLUTICASONE/SALMETEROL 100 MCG/50 MCG DISKUS IH SCH ×2 (10:05→21:15)
[2017-04-28] MEDS: hydrOXYzine PAMOATE 50 MG CAPSULE (FP) PO PRN ×2 (10:05→21:15)
--- NOTE | 2017-04-28 12:26 | PN ---
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, Nicotine Dependence and Substance-Induced Anxiety Disorder ROS: Asthma, GERD, Hep C, Alcohol-related seizure Current Medications: Active Medications Generic Name Dose Route Start Last Admin Trade Name Freq PRN Reason Stop Dose Admin Acetaminophen 650 mg 04/01/17 15:45 Tylenol - PO Q4H PRN FEVER Al Hydroxide/Mg Hydroxide 30 ml 04/01/17 15:45 Mylanta Oral Suspension - PO Q6H PRN DYSPEPSIA Albuterol Sulfate 2 puff 04/01/17 15:45 04/25/17 21:19 Ventolin Hfa Inhaler - IH 2 puff Q4H PRN Administration ASTHMA Eucalyptus/Menthol/Phenol/Sorbitol 1 each 04/01/17 15:45 Cepastat Lozenge - MM Q4H PRN SORE THROAT Gabapentin 200 mg 04/02/17 14:00 04/28/17 06:05 Neurontin - PO 200 mg TID FINA Administration Guaifenesin 10 ml 04/01/17 15:45 Robitussin Dm - PO Q6H PRN COUGH Hydroxyzine Pamoate 50 mg 04/01/17 15:45 04/28/17 10:05 Vistaril - PO 50 mg Q4H PRN Administration AGITATION Ibuprofen 400 mg 04/01/17 15:45 Motrin - PO Q6H PRN Pain Level 4-6 Loperamide HCl 4 mg 04/01/17 15:45 04/02/17 04:38 Imodium - PO 4 mg Q6H PRN Administration DIARRHEA Magnesium Citrate 300 ml 04/01/17 15:45 Citroma - PO Q48H PRN CONSTIPATION Magnesium Hydroxide 30 ml 04/01/17 15:45 Milk Of Magnesia - PO DAILY PRN CONSTIPATION Methadone HCl 120 mg/ 140 mg 04/25/17 06:00 04/28/17 06:05 Methadone HCl 20 mg PO 05/02/17 05:59 140 mg DAILY@0600 FINA Administration Nicotine 7 mg 04/02/17 11:25 04/28/17 10:03 Nicoderm Patch - TD 7 mg DAILY FINA Administration Nicotine Polacrilex 2 mg 04/02/17 11:04 04/28/17 10:06 Nicorette Gum - BUC 2 mg Q2H PRN Administration NICOTINE REPLACEMENT RX Pantoprazole Sodium 40 mg 04/02/17 10:00 04/28/17 10:03 Protonix - PO 40 mg DAILY FINA Administration Multivit/Folic Acid/Iron 1 tab 04/02/17 10:00 04/28/17 10:03 Vitamins (Sjr) - PO 1 tab DAILY FINA Administration Pseudoephedrine/Triprolidine 1 combo 04/01/17 15:45 Actifed - PO TID PRN NASAL CONGESTION Fluticasone/Salmeterol 1 puff 04/01/17 22:00 04/28/17 10:05 Advair 100mcg/50mcg - IH 1 puff BID FINA Administration Thiamine HCl 100 mg 04/01/17 22:00 04/27/17 21:19 Vitamin B1 - PO 100 mg HS FINA Administration Current Side Effect: No Lab tests ordered: Yes Lab tests reviewed: Yes Provider note:: Patient will complete this program on 04/29/17. He has met his treatment goals and will continue to address his issues in outpatient treatment at [facility]. Told signwriter that from his participation in this program , he has learned the meaning and importance when people say:'Stay away from people, places and things". He responded well to Gabapentin 200 mg po TID. Script for that medication will be electronically transmitted to [facility] at [address] [place] [address]. He is stable for discharge on 04/29/17 Total face to face time:: 35 Mental Status Exam - Mental Status Exam Alert and Oriented to: Time, Place, Person Cognitive Function: Fair Patient Appearance: Well Groomed Mood: Hopeful, Euthymic Patient Behavior: Cooperative Speech Pattern: Clear Voice Loudness: Normal Thought Process: Intact, Goal Oriented Thought Disorder: Not Present Hallucinations: Denies Suicidal Ideation: Denies Homicidal Ideation: Denies Insight/Judgement: Fair Sleep: Fair Appetite: Good Muscle strength/Tone: Normal Gait/Station: Normal Psychiatric Treatment Plan - Problem List (1) Cocaine dependence Current Visit: Yes (2) Sedative hypnotic or anxiolytic dependence Current Visit: Yes (3) Opioid dependence on agonist therapy Current Visit: No (4) Nicotine dependence Current Visit: No Qualifiers: Nicotine product type: cigarettes Substance use status: in withdrawal Qualified Code(s): F17.213 - Nicotine dependence, cigarettes, with withdrawal (5) Substance-induced anxiety disorder Current Visit: Yes (6) Asthma Current Visit: No Qualifiers: Asthma severity: mild Asthma complication type: uncomplicated (7) GERD (gastroesophageal reflux disease) Current Visit: No Qualifiers: Esophagitis presence: esophagitis presence not specified Qualified Code(s) : K21.9 - Gastro-esophageal reflux disease without esophagitis (8) History of hepatitis C virus infection Current Visit: No Initial treatment plan: Patient will be discharged tomorrow and referred to [facility] for outpatient treatment
[2017-04-28] MEDS: THIAMINE HCL 100 MG TABLET (FP) PO SCH (21:15)
[2017-04-29] MEDS ORDERED: METHADONE HCL 40 MG DISPERSABLE TABLET ONE (05:35)
[2017-04-29] MEDS ORDERED: METHADONE HCL 10 MG TABLET ONE (05:35)
[2017-04-29] MEDS: METHADONE 120 MG, METHADONE 20 MG PO SCH (06:35)
[2017-04-29] MEDS: GABAPENTIN 100 MG CAPSULE (FP) PO SCH (06:35)
[2017-04-29 06:51] VITALS: BP 128/85; PULSE 71; TEMP 97.9
[2017-04-29] MEDS: PRENATAL VITAMINS W/ FOLIC ACID TABLET (FP) PO SCH (09:37)
[2017-04-29] MEDS: PANTOPRAZOLE 40 MG TABLET (FP) PO SCH (09:37)
[2017-04-29] MEDS: NICOTINE 7 MG/24 HOURS TOPICAL PATCH TD SCH (09:37)
[2017-04-29] MEDS: FLUTICASONE/SALMETEROL 100 MCG/50 MCG DISKUS IH SCH (09:37)
== END 2017-04-29 10:25 | disposition home or self-care (01) | DRG 772 ==
LOC: YASAS 13:26 → Y5N 13:27
PROVIDERS: ADMIT Psychiatry & Neurology Psychiatry; ATTEND Psychiatry & Neurology Psychiatry
PROC: HZ42ZZZ Group Counseling for Substance Abuse Treatment, Cognitive-Behavioral (ICD-10-PCS; principal; 2017-04-29)
DX: F13.20 Sedative, hypnotic or anxiolytic dependence, uncomplicated (principal); F11.20 Opioid dependence, uncomplicated; F14.20 Cocaine dependence, uncomplicated; F17.213 Nicotine dependence, cigarettes, with withdrawal; F19.280 Other psychoactive substance dependence with psychoactive substance-induced anxiety disorder; J45.909 Unspecified asthma, uncomplicated; K21.9 Gastro-esophageal reflux disease without esophagitis; B18.2 Chronic viral hepatitis C; Z86.69 Personal history of other diseases of the nervous system and sense organs

== ENCOUNTER 2022-06-04 00:37 | Inpatient (IN) | payer OTHER ==
[2022-06-04] MEDS ORDERED: ALBUTEROL SO4 2.5/IPRATROPIUM 0.5 INH SOL 3 ML VIAL.NEB. NEB ONE ×2 (00:56→01:05)
[2022-06-04] MEDS ORDERED: CLINDAMYCIN 900 MG PREMIX IVPB 900 MG/50 ML BAG IVPB ONE ×2 (00:57→01:05)
[2022-06-04] MEDS ORDERED: methylPREDNISolone NA SUCC 125 MG/2 ML VIAL IVPUSH ONE (00:59)
[2022-06-04] MEDS ORDERED: methylPREDNISolone NA SUCC 125 MG/2 ML VIAL ONE (01:05)
[2022-06-04] MEDS ORDERED: ACETAMINOPHEN 1000 MG/100 ML BAG IVPB ONE (01:50)
[2022-06-04] MEDS ORDERED: PIPERACILLIN/TAZOB 4.5 GM 4.5 GM in DEXTROSE 5%-WATER 100 ML IVPB ONE (01:50)
[2022-06-04] MEDS ORDERED: ACETAMINOPHEN INJECTION 100 ML IVPB ONE (01:59)
[2022-06-04] MEDS ORDERED: PIPERACILLIN/TAZOB 4.5 GM 4.5 GM/100 ML BAG IVPB ONE (01:59)
[2022-06-04 03:00] LABS: VENOUS O2 SATURATION 21.1 % (70-80); VENOUS PCO2 57.1 mmHg (38-52); VENOUS PH 7.312 (7.310-7.410)
[2022-06-04 03:05] LABS: EPI CELLS 4 /uL (0-25.1); HYALINE CASTS 0 /uL (0-3.1); PH,URINE 5.5 (5.0-8.0); URINE APPEARANCE CLEAR; URINE BACTERIA 4 /uL (0-1359); URINE BILIRUBIN NEGATIVE (NEGATIVE); URINE COLOR YELLOW; URINE GLUCOSE (UA) NEGATIVE (NEGATIVE); URINE KETONE NEGATIVE (NEGATIVE); URINE LEUK ESTERASE NEGATIVE (NEGATIVE); URINE NITRITE NEGATIVE (NEGATIVE); URINE PROTEIN TRACE (NEGATIVE); URINE RBC 32 /uL (0-23.9); URINE UROBILINOGEN 0.2 mg/dL (0.2-1.0); URINE WBC 9 /uL (0-25.8)
[2022-06-04 03:06] LABS: BASO % 0.3 % (0-2.0); EOS % 1.8 % (0-4.5); HEMATOCRIT 30.5 % (35.4-49); HEMOGLOBIN 10.3 GM/dL (11.7-16.9); LYMPH % 10.3 % (8-40); MCH 28.3 pg (25.7-33.7); MCHC 33.7 g/dl (32.0-35.9); MEAN CELL VOLUME 83.9 fl (80-96); MONO % 4.8 % (3.8-10.2); NEUT % 82.8 % (42.8-82.8); PLATELET COUNT 295 10^3/uL (134-434); RBC 3.63 M/mm3 (4.00-5.60); RDW 13.9 % (11.9-15.9); WHITE BLOOD COUNT 6.8 K/mm3 (4.0-10.0)
[2022-06-04 03:10] LABS: INR 1.2 (0.83-1.09); PROTHROMBIN TIME (PATIENT) 13.9 SEC (9.7-13.0)
[2022-06-04 03:13] LABS: ACTIVATED PTT 34.3 SECONDS (25.2-36.5)
[2022-06-04 03:50] LABS: ALBUMIN 3.1 g/dl (3.4-5.0); BLOOD UREA NITROGEN 20.9 mg/dL (7-18); CALCIUM 8.5 mg/dL (8.5-10.1)
[2022-06-04 03:55] LABS: BILIRUBIN,TOTAL 0.2 mg/dL (0.2-1); TOT PROT 8.8 g/dl (6.4-8.2)
[2022-06-04] MEDS ORDERED: VANCOMYCIN 1 GM/200 ML PREMIX BAG (RESTRICTED TO ID ONLY) IVPB SCH (10:00)
[2022-06-04] MEDS ORDERED: VANCOMYCIN 1 GM/200 ML PREMIX BAG (RESTRICTED TO ID ONLY) IVPB ONE (10:00)
[2022-06-04] MEDS ORDERED: VANCOMYCIN/WATER FOR INJ (PEG) 1,000 MG/200 ML BAG IVPB ONE (10:18)
[2022-06-04] MEDS ORDERED: SERTRALINE HCL 50 MG TABLET (FP) ONE (10:18)
[2022-06-04] MEDS ORDERED: ENOXAPARIN NA (PORCINE) 40 MG/0.4 ML DISP.SYRIN SQ ONE (10:18)
[2022-06-04] MEDS: ENOXAPARIN NA (PORCINE) 40 MG/0.4 ML DISP.SYRIN SQ SCH (10:23)
[2022-06-04] MEDS: SERTRALINE HCL 50 MG TABLET (FP) PO SCH (10:24)
[2022-06-04] MEDS ORDERED: ALPRAZolam 1 MG TABLET ONE (10:29)
[2022-06-04] MEDS: ALPRAZolam 1 MG TABLET PO PRN ×2 (10:31→22:05)
[2022-06-04] MEDS ORDERED: methaDONE HCL 40 MG DISPERSABLE TABLET ONE (11:17)
[2022-06-04] MEDS ORDERED: methaDONE HCL 10 MG TABLET ONE (11:18)
[2022-06-04 13:26] VITALS: BMI 18.9
[2022-06-04] MEDS ORDERED: ALPRAZolam 1 MG TABLET PO SCH (14:00)
[2022-06-04] MEDS: PIPERACILLIN/TAZOB 3.375 GM 3.375 GM in DEXTROSE 5%-WATER - 50 ML IVPB SCH (17:27)
[2022-06-04] MEDS: KETOROLAC TROMETHAMINE 15 MG/ML VIAL IVPUSH PRN (18:19)
[2022-06-05] MEDS: PIPERACILLIN/TAZOB 3.375 GM 3.375 GM in DEXTROSE 5%-WATER - 50 ML IVPB SCH ×3 (02:00→17:14)
[2022-06-05] MEDS: ALBUTEROL SO4 HFA INHALER IH PRN ×2 (04:28→21:55)
[2022-06-05] MEDS: SERTRALINE HCL 50 MG TABLET (FP) PO SCH (09:03)
[2022-06-05] MEDS: ALPRAZolam 1 MG TABLET PO PRN ×2 (09:03→21:58)
[2022-06-05] MEDS: ENOXAPARIN NA (PORCINE) 40 MG/0.4 ML DISP.SYRIN SQ SCH (09:04)
[2022-06-05] MEDS ORDERED: VANCOMYCIN 1 GM/200 ML PREMIX BAG (RESTRICTED TO ID ONLY) IVPB SCH (10:00)
[2022-06-05] MEDS ORDERED: methaDONE HCL 10 MG TABLET (FOR DETOX USE ONLY) PO SCH (10:00)
[2022-06-05 10:37] LABS: HEMATOCRIT 29.6 % (35.4-49); MCH 28.2 pg (25.7-33.7); MCHC 33.8 g/dl (32.0-35.9); MEAN CELL VOLUME 83.3 fl (80-96); MEAN PLT VOLUME 8.4 fl (7.5-11.1); PLATELET COUNT 263 10^3/uL (134-434); RBC 3.55 M/mm3 (4.00-5.60); RDW 13.9 % (11.9-15.9)
[2022-06-05 10:47] LABS: WHITE BLOOD COUNT 9.6 K/mm3 (4.0-10.0)
[2022-06-05 11:06] LABS: CALCIUM 8.5 mg/dL (8.5-10.1)
[2022-06-05 11:07] LABS: ALBUMIN 2.6 g/dl (3.4-5.0); BLOOD UREA NITROGEN 16.1 mg/dL (7-18); PHOSPHOROUS 2.3 mg/dL (2.5-4.9)
[2022-06-05 11:08] LABS: BILIRUBIN,TOTAL 0.2 mg/dL (0.2-1)
[2022-06-05 11:09] LABS: TOT PROT 7.6 g/dl (6.4-8.2)
[2022-06-05 11:10] LABS: CREATININE 0.8 mg/dL (0.55-1.3)
[2022-06-05 11:44] LABS: ANISOCYTOSIS 0; HELMET CELLS 0; HOWELL-JOLLY BODIES 0; MACROCYTOSIS 0; OVALOCYTE 0; ROULEAU 0; SICKELED CELLS 0; TARGET CELLS 0; TEAR DROP CELLS 0; TOXIC GRANULATION 0
[2022-06-05 18:59] LABS: HIV INTERPRETATION NEGATIVE (NEGATIVE)
[2022-06-06] MEDS: PIPERACILLIN/TAZOB 3.375 GM 3.375 GM in DEXTROSE 5%-WATER - 50 ML IVPB SCH ×3 (02:00→18:10)
[2022-06-06] MEDS: ALBUTEROL SO4 HFA INHALER IH PRN ×2 (03:44→21:15)
[2022-06-06] MEDS: ALPRAZolam 1 MG TABLET PO PRN ×2 (09:07→21:15)
[2022-06-06] MEDS: SERTRALINE HCL 50 MG TABLET (FP) PO SCH (09:08)
[2022-06-06] MEDS: ENOXAPARIN NA (PORCINE) 40 MG/0.4 ML DISP.SYRIN SQ SCH (09:15)
[2022-06-06 09:26] LABS: BASO % 0.6 % (0-2.0); EOS % 2.7 % (0-4.5); HEMOGLOBIN 10.1 GM/dL (11.7-16.9); LYMPH % 21.8 % (8-40); MCH 27.9 pg (25.7-33.7); MCHC 33.5 g/dl (32.0-35.9); MEAN CELL VOLUME 83.4 fl (80-96); MEAN PLT VOLUME 6.8 fl (7.5-11.1); MONO % 5.8 % (3.8-10.2); NEUT % 69.1 % (42.8-82.8); PLATELET COUNT 305 10^3/uL (134-434); RDW 13.6 % (11.9-15.9); WHITE BLOOD COUNT 6.2 K/mm3 (4.0-10.0)
[2022-06-06 09:54] LABS: ALBUMIN 2.7 g/dl (3.4-5.0); CALCIUM 8.8 mg/dL (8.5-10.1); MAGNESIUM 1.8 mg/dL (1.8-2.4)
[2022-06-06 09:57] LABS: CREATININE 0.9 mg/dL (0.55-1.3)
[2022-06-06 09:58] LABS: PHOSPHOROUS 3.6 mg/dL (2.5-4.9)
[2022-06-06 09:59] LABS: BILIRUBIN,TOTAL 0.2 mg/dL (0.2-1); TOT PROT 7.8 g/dl (6.4-8.2)
[2022-06-06] MEDS: KETOROLAC TROMETHAMINE 15 MG/ML VIAL IVPUSH PRN ×2 (11:33→18:17)
[2022-06-07] MEDS: PIPERACILLIN/TAZOB 3.375 GM 3.375 GM in DEXTROSE 5%-WATER - 50 ML IVPB SCH ×3 (01:36→18:33)
[2022-06-07] MEDS: KETOROLAC TROMETHAMINE 15 MG/ML VIAL IVPUSH PRN ×2 (02:03→15:17)
[2022-06-07 08:52] LABS: BASO % 0.7 % (0-2.0); EOS % 7.8 % (0-4.5); HEMATOCRIT 35.7 % (35.4-49); LYMPH % 41.3 % (8-40); MCH 28.1 pg (25.7-33.7); MCHC 33.6 g/dl (32.0-35.9); MEAN CELL VOLUME 83.6 fl (80-96); MEAN PLT VOLUME 6.6 fl (7.5-11.1); NEUT % 42.2 % (42.8-82.8); PLATELET COUNT 305 10^3/uL (134-434); RBC 4.27 M/mm3 (4.00-5.60); RDW 13.9 % (11.9-15.9); WHITE BLOOD COUNT 3.4 K/mm3 (4.0-10.0)
[2022-06-07 09:09] LABS: CALCIUM 9.2 mg/dL (8.5-10.1)
[2022-06-07 09:10] LABS: BLOOD UREA NITROGEN 21.3 mg/dL (7-18); MAGNESIUM 2.3 mg/dL (1.8-2.4)
[2022-06-07 09:13] LABS: CREATININE 0.8 mg/dL (0.55-1.3); PHOSPHOROUS 3.7 mg/dL (2.5-4.9)
[2022-06-07 09:15] LABS: BILIRUBIN,TOTAL 0.3 mg/dL (0.2-1); TOT PROT 8.5 g/dl (6.4-8.2)
[2022-06-07] MEDS: AMINO ACIDS/PROTEIN HYDROLYS 30 ML LIQUID.PKT PO SCH (09:17)
[2022-06-07] MEDS: SERTRALINE HCL 50 MG TABLET (FP) PO SCH (09:17)
[2022-06-07] MEDS: ALPRAZolam 1 MG TABLET PO PRN ×2 (09:17→21:31)
[2022-06-07] MEDS: ENOXAPARIN NA (PORCINE) 40 MG/0.4 ML DISP.SYRIN SQ SCH (09:18)
[2022-06-07] MEDS: POLYETHYLENE GLYCOL (HEALTHYLAX) 3350 17 GM PACKET PO SCH (11:20)
[2022-06-07] MEDS: SENNOSIDES 8.6MG TABLET (FP) PO SCH ×2 (11:20→21:31)
[2022-06-08] MEDS: KETOROLAC TROMETHAMINE 15 MG/ML VIAL IVPUSH PRN ×2 (00:06→11:14)
[2022-06-08] MEDS: PIPERACILLIN/TAZOB 3.375 GM 3.375 GM in DEXTROSE 5%-WATER - 50 ML IVPB SCH ×2 (01:36→11:11)
[2022-06-08] MEDS: AMINO ACIDS/PROTEIN HYDROLYS 30 ML LIQUID.PKT PO SCH (08:44)
[2022-06-08] MEDS: ALPRAZolam 1 MG TABLET PO PRN ×2 (08:44→21:04)
[2022-06-08] MEDS: POLYETHYLENE GLYCOL (HEALTHYLAX) 3350 17 GM PACKET PO SCH ×2 (11:09→11:23)
[2022-06-08] MEDS: MULTIVITAMINS (DAILY MVI) TABLET (FP) PO SCH (11:10)
[2022-06-08] MEDS: SENNOSIDES 8.6MG TABLET (FP) PO SCH ×2 (11:10→21:04)
[2022-06-08] MEDS: SERTRALINE HCL 50 MG TABLET (FP) PO SCH (11:10)
[2022-06-08] MEDS: ENOXAPARIN NA (PORCINE) 40 MG/0.4 ML DISP.SYRIN SQ SCH ×2 (11:12→11:24)
[2022-06-08 13:54] LABS: BASO % 0.8 % (0-2.0); EOS % 5.3 % (0-4.5); HEMATOCRIT 34.2 % (35.4-49); HEMOGLOBIN 11.6 GM/dL (11.7-16.9); LYMPH % 23.9 % (8-40); MCH 28.6 pg (25.7-33.7); MCHC 34.1 g/dl (32.0-35.9); MEAN CELL VOLUME 83.9 fl (80-96); MEAN PLT VOLUME 6.9 fl (7.5-11.1); MONO % 5.1 % (3.8-10.2); NEUT % 64.9 % (42.8-82.8); PLATELET COUNT 363 10^3/uL (134-434); RBC 4.08 M/mm3 (4.00-5.60); RDW 13.9 % (11.9-15.9); WHITE BLOOD COUNT 4.1 K/mm3 (4.0-10.0)
[2022-06-08 14:06] LABS: CALCIUM 9.5 mg/dL (8.5-10.1)
[2022-06-08 14:07] LABS: BLOOD UREA NITROGEN 20.1 mg/dL (7-18)
[2022-06-08 14:10] LABS: CREATININE 0.8 mg/dL (0.55-1.3)
[2022-06-08] MEDS: AMOX TR/POT CLAV 875MG/125MG TABLETS (FP) PO SCH (17:10)
[2022-06-08] MEDS ORDERED: PANTOPRAZOLE 40 MG TABLET PO ONE (17:16)
[2022-06-08] MEDS: ZINC SULFATE 220 MG CAPSULE (FP) PO SCH (21:04)
[2022-06-09 04:48] VITALS: RESP 18
[2022-06-09] MEDS: AMINO ACIDS/PROTEIN HYDROLYS 30 ML LIQUID.PKT PO SCH (08:21)
[2022-06-09] MEDS: AMOX TR/POT CLAV 875MG/125MG TABLETS (FP) PO SCH ×2 (08:21→17:03)
[2022-06-09] MEDS: ALPRAZolam 1 MG TABLET PO PRN ×2 (08:22→21:28)
[2022-06-09] MEDS: SERTRALINE HCL 50 MG TABLET (FP) PO SCH (09:08)
[2022-06-09] MEDS: MULTIVITAMINS (DAILY MVI) TABLET (FP) PO SCH (09:08)
[2022-06-09] MEDS: ZINC SULFATE 220 MG CAPSULE (FP) PO SCH ×2 (09:08→21:28)
[2022-06-09] MEDS: SENNOSIDES 8.6MG TABLET (FP) PO SCH ×2 (09:08→21:29)
[2022-06-09] MEDS: POLYETHYLENE GLYCOL (HEALTHYLAX) 3350 17 GM PACKET PO SCH (09:11)
[2022-06-09] MEDS: ENOXAPARIN NA (PORCINE) 40 MG/0.4 ML DISP.SYRIN SQ SCH (09:11)
[2022-06-09] MEDS ORDERED: KETOROLAC TROMETHAMINE 15 MG/ML VIAL IVPUSH PRN (11:22)
[2022-06-10] MEDS: AMOX TR/POT CLAV 875MG/125MG TABLETS (FP) PO SCH (08:24)
[2022-06-10] MEDS: ALPRAZolam 1 MG TABLET PO PRN (08:25)
[2022-06-10] MEDS: AMINO ACIDS/PROTEIN HYDROLYS 30 ML LIQUID.PKT PO SCH (08:25)
[2022-06-10] MEDS: ZINC SULFATE 220 MG CAPSULE (FP) PO SCH (09:13)
[2022-06-10] MEDS: MULTIVITAMINS (DAILY MVI) TABLET (FP) PO SCH (09:13)
[2022-06-10] MEDS: SERTRALINE HCL 50 MG TABLET (FP) PO SCH (09:13)
[2022-06-10] MEDS: POLYETHYLENE GLYCOL (HEALTHYLAX) 3350 17 GM PACKET PO SCH (09:13)
[2022-06-10] MEDS: ENOXAPARIN NA (PORCINE) 40 MG/0.4 ML DISP.SYRIN SQ SCH (09:13)
[2022-06-10] MEDS: SENNOSIDES 8.6MG TABLET (FP) PO SCH (09:14)
[2022-06-10 11:02] VITALS: BP 132/88; PULSE 68; TEMP 98.7
== END 2022-06-10 15:45 | disposition other institution (70) | DRG 383 ==
LOC: JER 00:37 → JERBED 01:00 → J6S 12:27
PROVIDERS: ADMIT Internal Medicine; ATTEND Internal Medicine
DX: L03.116 Cellulitis of left lower limb (principal); F14.10 Cocaine abuse, uncomplicated; L97.929 Non-pressure chronic ulcer of unspecified part of left lower leg with unspecified severity; F10.10 Alcohol abuse, uncomplicated; K21.9 Gastro-esophageal reflux disease without esophagitis; F32.A Depression, unspecified; F41.9 Anxiety disorder, unspecified; J45.909 Unspecified asthma, uncomplicated; D64.9 Anemia, unspecified; R64 Cachexia; Z68.1 Body mass index [BMI] 19.9 or less, adult; F11.20 Opioid dependence, uncomplicated; E43 Unspecified severe protein-calorie malnutrition; J44.9 Chronic obstructive pulmonary disease, unspecified
CPT/HCPCS: 0241U-QW; 36415; 71045-TC-FY; 73590-TC-LT-FY; 73630-TC-LT; 73718-TC-LT; 80048; 80053; 81003; 82550; 82553; 82728; 82803; 83540; 83550; 83605; 83735; 84100; 84443; 84484; 85025; 85045; 85610; 85730; 86038; 86140; 86704; 86803; 86850; 86900; 86901; 87040; 87086; 87340; 87389; 87517; 87522; 93005; 93010; 93926-TC; 99285-25

== ENCOUNTER 2022-06-10 16:26 | Inpatient (IN) | payer OTHER ==
[2022-06-10 16:59] VITALS: BMI 18.6
[2022-06-10] MEDS ORDERED: diazePAM 5 MG TABLET PO ONE (19:47)
[2022-06-10] MEDS ORDERED: AMMONIUM LACTATE 12% LOTION 225 GM BOTTLE TP PRN (19:47)
[2022-06-10] MEDS ORDERED: BISMUTH SUBSALICYLATE 524 MG/30 ML PO PRN (19:47)
[2022-06-10] MEDS ORDERED: guaiFENesin 600 MG TABLET.ER (FP) PO PRN (19:47)
[2022-06-10] MEDS ORDERED: ONDANSETRON *ODT* 4 MG TABLET SL PRN (19:47)
[2022-06-10] MEDS ORDERED: LOPERAMIDE HCL 2 MG CAPSULE PO PRN (19:47)
[2022-06-10] MEDS ORDERED: BENZONATATE 200 MG CAPSULE PO PRN (19:47)
[2022-06-10] MEDS ORDERED: NALOXONE HCL (KLOXXADO) 8 MG SPRAY NS PRN (19:47)
[2022-06-10] MEDS ORDERED: ACETAMINOPHEN 325 MG TABLET (FP) PO PRN (19:47)
[2022-06-10] MEDS ORDERED: COLLOIDAL OATMEAL 1 BAR EACH TP PRN (19:47)
[2022-06-10] MEDS ORDERED: MAGNESIUM HYDROX 2400MG/30ML ORAL SUSPENSION 30 ML CUP PO PRN (19:47)
[2022-06-10] MEDS ORDERED: DICYCLOMINE HCL 10 MG CAPSULE PO PRN (19:47)
[2022-06-10] MEDS ORDERED: NALOXONE HCL 0.4 MG/ML VIAL IM PRN (19:47)
[2022-06-10] MEDS ORDERED: BENZOCAINE/MENTHOL (CHLORASEPTIC ) LOZENGE MM PRN (19:47)
[2022-06-10] MEDS ORDERED: POLYETHYLENE GLYCOL (HEALTHYLAX) 3350 17 GM PACKET PO PRN (19:47)
[2022-06-10] MEDS ORDERED: NICOTINE 10 MG CARTRIDGE (INHALER) IH PRN (19:47)
[2022-06-10] MEDS ORDERED: IBUPROFEN 400 MG TABLET (FP) PO PRN (19:47)
[2022-06-10] MEDS ORDERED: ALBUTEROL SO4 HFA INHALER IH PRN (19:50)
[2022-06-10] MEDS ORDERED: diazePAM 5 MG TABLET ONE (20:26)
[2022-06-10] MEDS: IBUPROFEN 600 MG TABLET (FP) PO PRN (22:16)
[2022-06-10] MEDS: AMOX TR/POT CLAV 875MG/125MG TABLETS (FP) PO SCH (22:46)
[2022-06-10] MEDS: diazePAM 5 MG TABLET PO SCH (22:46)
[2022-06-10] MEDS: MELATONIN 5 MG TABLETS PO SCH (22:48)
[2022-06-10] MEDS: THIAMINE HCL 100 MG TABLET (FP) PO SCH (22:48)
[2022-06-10] MEDS: NICOTINE POLACRILEX 2 MG GUM BUC PRN (22:51)
[2022-06-11] MEDS: diazePAM 5 MG TABLET PO SCH ×4 (05:06→22:13)
[2022-06-11] MEDS: AMOX TR/POT CLAV 875MG/125MG TABLETS (FP) PO SCH ×2 (10:08→22:13)
[2022-06-11] MEDS: SERTRALINE HCL 50 MG TABLET (FP) PO SCH (10:08)
[2022-06-11] MEDS: PRENATAL VITAMINS W/ FOLIC ACID TABLET (FP) PO SCH (10:08)
[2022-06-11] MEDS: IBUPROFEN 600 MG TABLET (FP) PO PRN (10:09)
[2022-06-11] MEDS: NICOTINE POLACRILEX 2 MG GUM BUC PRN ×2 (10:11→17:41)
[2022-06-11] MEDS ORDERED: methaDONE HCL 10 MG TABLET PO SCH (11:00)
[2022-06-11 11:47] LABS: CALCIUM 9.5 mg/dL (8.5-10.1)
[2022-06-11 11:48] LABS: BLOOD UREA NITROGEN 24.9 mg/dL (7-18)
[2022-06-11 11:50] LABS: HEMATOCRIT 36.1 % (35.4-49); HEMOGLOBIN 12.3 GM/dL (11.7-16.9); MCHC 34.2 g/dl (32.0-35.9); MEAN CELL VOLUME 84.9 fl (80-96); MEAN PLT VOLUME 7.3 fl (7.5-11.1); PLATELET COUNT 376 10^3/uL (134-434); RBC 4.25 M/mm3 (4.00-5.60); RDW 14.3 % (11.9-15.9); WHITE BLOOD COUNT 5.6 K/mm3 (4.0-10.0)
[2022-06-11 11:51] LABS: CREATININE 0.8 mg/dL (0.55-1.3)
[2022-06-11 11:53] LABS: BILIRUBIN,TOTAL 0.5 mg/dL (0.2-1); TOT PROT 9.2 g/dl (6.4-8.2)
[2022-06-11 11:55] LABS: ALBUMIN 3.7 g/dl (3.4-5.0)
[2022-06-11] MEDS: THIAMINE HCL 100 MG TABLET (FP) PO SCH (22:13)
[2022-06-11] MEDS: METHOCARBAMOL 500 MG TABLET PO PRN (22:13)
[2022-06-11] MEDS: MELATONIN 5 MG TABLETS PO SCH (22:13)
[2022-06-12] MEDS: diazePAM 5 MG TABLET PO SCH ×3 (05:03→22:18)
[2022-06-12] MEDS: IBUPROFEN 600 MG TABLET (FP) PO PRN ×2 (09:05→22:21)
[2022-06-12] MEDS: METHOCARBAMOL 500 MG TABLET PO PRN (09:05)
[2022-06-12] MEDS: SERTRALINE HCL 50 MG TABLET (FP) PO SCH (09:05)
[2022-06-12] MEDS: NICOTINE POLACRILEX 2 MG GUM BUC PRN ×2 (09:07→22:20)
[2022-06-12] MEDS: AMOX TR/POT CLAV 875MG/125MG TABLETS (FP) PO SCH ×2 (11:22→22:18)
[2022-06-12] MEDS: PRENATAL VITAMINS W/ FOLIC ACID TABLET (FP) PO SCH (11:23)
[2022-06-12] MEDS: cloNIDine HCL 0.1 MG TABLET PO PRN (18:35)
[2022-06-12] MEDS: MELATONIN 5 MG TABLETS PO SCH (22:18)
[2022-06-12] MEDS: THIAMINE HCL 100 MG TABLET (FP) PO SCH (22:18)
[2022-06-12] MEDS: MAG HYDROX/AL HYDROX/SIMETH 30 ML UNIT-DOSE CUP PO PRN (22:21)
[2022-06-13] MEDS: diazePAM 5 MG TABLET PO SCH ×2 (05:08→17:31)
[2022-06-13] MEDS: NICOTINE POLACRILEX 2 MG GUM BUC PRN ×5 (05:10→22:13)
[2022-06-13] MEDS: SERTRALINE HCL 50 MG TABLET (FP) PO SCH (10:06)
[2022-06-13] MEDS: PRENATAL VITAMINS W/ FOLIC ACID TABLET (FP) PO SCH (10:06)
[2022-06-13] MEDS: AMOX TR/POT CLAV 875MG/125MG TABLETS (FP) PO SCH ×2 (10:06→22:09)
[2022-06-13] MEDS: IBUPROFEN 600 MG TABLET (FP) PO PRN ×2 (10:09→17:32)
[2022-06-13] MEDS: cloNIDine HCL 0.1 MG TABLET PO PRN ×2 (10:09→22:10)
[2022-06-13] MEDS: MAG HYDROX/AL HYDROX/SIMETH 30 ML UNIT-DOSE CUP PO PRN (17:34)
[2022-06-13] MEDS: METHOCARBAMOL 500 MG TABLET PO PRN (22:09)
[2022-06-13] MEDS: THIAMINE HCL 100 MG TABLET (FP) PO SCH (22:09)
[2022-06-13] MEDS: MELATONIN 5 MG TABLETS PO SCH (22:09)
[2022-06-14] MEDS ORDERED: diazePAM 5 MG TABLET PO ONE (06:00)
[2022-06-14 09:11] VITALS: BP 138/63; PULSE 78; RESP 16; TEMP 97.6
[2022-06-14] MEDS: AMOX TR/POT CLAV 875MG/125MG TABLETS (FP) PO SCH (10:44)
[2022-06-14] MEDS: SERTRALINE HCL 50 MG TABLET (FP) PO SCH (10:44)
[2022-06-14] MEDS: cloNIDine HCL 0.1 MG TABLET PO PRN (10:44)
[2022-06-14] MEDS: PRENATAL VITAMINS W/ FOLIC ACID TABLET (FP) PO SCH (10:45)
[2022-06-14] MEDS: IBUPROFEN 600 MG TABLET (FP) PO PRN (10:45)
== END 2022-06-14 11:45 | disposition home or self-care (01) | DRG 773 ==
LOC: YASAS 16:26 → Y6N 20:25
PROVIDERS: ADMIT Allergy & Immunology; ATTEND Surgery
PROC: HZ2ZZZZ Detoxification Services for Substance Abuse Treatment (ICD-10-PCS; principal; 2022-06-10)
DX: F10.230 Alcohol dependence with withdrawal, uncomplicated (principal); F13.230 Sedative, hypnotic or anxiolytic dependence with withdrawal, uncomplicated; F11.20 Opioid dependence, uncomplicated; F12.20 Cannabis dependence, uncomplicated; F17.210 Nicotine dependence, cigarettes, uncomplicated; F19.282 Other psychoactive substance dependence with psychoactive substance-induced sleep disorder; F19.280 Other psychoactive substance dependence with psychoactive substance-induced anxiety disorder; F41.8 Other specified anxiety disorders; J44.9 Chronic obstructive pulmonary disease, unspecified; L03.116 Cellulitis of left lower limb; K21.9 Gastro-esophageal reflux disease without esophagitis; Z86.19 Personal history of other infectious and parasitic diseases
CPT/HCPCS: 36415; 80053; 85027; 86780; 87811; C9803-CS; U0003; U0005